=== PATIENT | female | born 1955 | race Caucasian/White ===

== ENCOUNTER 2022-10-20 07:44 | Observation (INO) ==
--- NOTE | 2022-08-09 10:14 | PAT Medication Instructions ---
Medication Instructions Date of Service August 09, 2022 Home Medications Medication Instructions Recorded amoxicillin 500 mg tablet 2,000 mg PO ONCE PRN prophylaxis 05/11/22 #4 tabs omeprazole 20 mg tablet,delayed release 20 mg PO Q2D ibandronate 150 mg PO MONTHLY amoxicillin 500 mg tablet 2,000 mg PO ONCE PRN prophylaxis Continue as directed omeprazole 20 mg tablet,delayed release 20 mg PO Q2D ibandronate 150 mg PO MONTHLY amoxicillin 500 mg tablet 2,000 mg PO ONCE PRN prophylaxis (prior to dental procedures) Other Notes If you have any questions please call us at [phone] or [phone] or [phone] or [phone]
--- NOTE | 2022-08-16 13:11 | Anesthesiology Consultation ---
Date of Service August 16, 2022 Assessment & Plan (1) Encounter for pre-operative examination: - Pt had requested instructions on anticoagulation and requests a different size for compression stockings, she was advised to further discuss these with the surgeon's office. She verbalized understanding and denied additional questions or concerns. Linda with surgeon's office aware and confirmed they are addressing both of these aspects for the pt. - Outpatient joint assessment: Patient is currently scheduled for inpatient pathway. If re-evaluated pending system levels during current pandemic/surgeon requests outpatient pathway, patient is not acceptable candidate for outpatient joint program from anesthesia standpoint. Chart Review Chart Review: Patient seen in Pre Admission Testing Teaching & Discussion Pre-Anesthesia Teaching/Discussion Notes: Instructed NPO after midnight before surgery, except medications with 15 cc of water. Medication instructions provided according to the PAT guidelines. History Surgery Operation Date: 09/08/22 09:20 Proposed Procedures p Left Total Knee Arthroplasty - Juan Lehman DO Height/Weight Height: 5 ft Weight: 88.451 kg Allergies Allergy/AdvReac Type Severity Reaction Status Date / Time No Known Allergies Allergy Verified 08/08/22 11:19 Medications Home Medications Medication Instructions Recorded Confirmed Last Taken omeprazole 20 mg tablet,delayed 20 mg PO Q2D 05/04/21 08/08/22 11/11/21 05:30 release ibandronate 150 mg PO MONTHLY 10/18/21 08/08/22 10/11/21 amoxicillin 500 mg tablet 2,000 mg PO ONCE PRN prophylaxis 05/11/22 08/08/22 Unknown #4 tabs Past Medical History Medical History (Updated 08/16/22 @ 13:18 by Geno Argueta PA-C) Anxiety Chronic venous insufficiency follows with [place] [facility] Depression DVT (deep venous thrombosis) RLE- iliac and lower leg (s/p R TKA 11/2021), given Eliquis for 6 weeks- followed with [facility] and per 07/11/22 note: "Venous reflux study shows no DVT" GERD (gastroesophageal reflux disease) controlled, stable per pt Hearing deficit bilateral hearing aids History of hepatitis C treated Obesity Osteoporosis Urge incontinence Patient denies h/o stroke, seizures, heart attack, heart failure, DM, HTN, or blood transfusions. Exercise / Class Metabolic Activity II 4-5 Yardwork/Stairs/Walk up hill (denies CP or SOB with 1 FOS) Past Family History Family History Father Hypertension Kidney stones Lung cancer Deep vein thrombosis pt notes heavy tobacco use, lung CA Mother Bladder cancer Other No family history of adverse response to anesthesia Past Surgical History Surgical History (Updated 08/16/22 @ 13:08 by Geno Argueta PA-C) History of arthroscopy of right knee History of benign breast biopsy History of bilateral cataract extraction History of section History of colonoscopy History of cone biopsy of cervix History of esophagogastroduodenoscopy (EGD) History of strabismus surgery x5 History of wisdom tooth extraction Status post right knee replacement Right TKA (11/11/21): SAB at L4-5 (x1 attempt) + PNB at [facility]. No issues noted per post-op anesthesia progress note. developed post-op significant RLE DVT, 6 weeks anticoagulation, follows with [place] [facility]. Past Anesthesia History No Hx of Anesthesia Complications and No Family Hx of Anesthesia Complications History of PONV No Hx of PONV and No Hx of Motion Sickness Social History Smoking Status: Former smoker tobacco type: cigarettes Do You Dip or Chew Tobacco: No Smoking End Date: 23 yr ago Hx Alcohol Use: Yes Alcohol type: wine alcohol intake frequency: 0-2 drinks per day Hx Substance Use: No substance use type: marijuana Substance Use Type Other:: rarely-advised Last Used Substance Other:: "SOCIALLY" LAST USED > unknown per pt, ADVISED Review of Systems Snoring, denies witnessed apneas. Patient denies chest pain, shortness of breath, dyspnea on exertion, fever, chills, cough, wheezing, or palpitations. Physical Exam Vital Signs Vitals BP 130/81 P 70 TEMP 98 SP02 97% on RA RESP 18 Physical Full cervical extension range of motion without pain TMD 3.5 finger breadths Mallampati Score 3, small oral opening, macroglossia Dentition: intact, several caps/crowns; denies chipped teeth, implants or bridges Lungs: normal respiratory effort. Clear throughout to auscultation, no adventitious breath sounds Cardiac: regular rate and rhythm, no murmurs noted Carotid arteries: negative bruit bilat Lab Results Anesthesia Preop Results Results Anesthesia Widget: WBC 6.26 K/ul (4.8-10.8) 08/16/22 Hgb 13.5 g/dl (12.0-16.0) 08/16/22 Hct 40.5 % (34.1-44.9) 08/16/22 Plt 294 K/uL (130-400) 08/16/22 Na 142 mmol/L (136-145) 08/16/22 K 4.1 mmol/L (3.5-5.1) 08/16/22 Cl 107 mmol/L (98-107) 08/16/22 CO2 28 mmol/L (21-32) 08/16/22 BUN 16 mg/dl (6-23) 08/16/22 Creat 0.82 mg/dl (0.6-1.2) 08/16/22 Glucose Level 106 mg/dl (70-99(Fasting)) H 08/16/22 PT 10.4 Seconds (9.0-12.0) 08/16/22 PTT 25.2 Seconds (21.0-31.0) 08/16/22 INR 1.0 (0.9-1.1) 08/16/22 Blood Type AB Positive 08/16/22 Antibody Screen NEGATIVE 08/16/22 Testing Electrocardiogram Date: 11/18/21 *Poor data quality NSR, rate 70 bpm Chest X-Ray Date: 10/18/21 The cardiomediastinal and hilar silhouettes are within normal limits. No pneumothorax, pleural effusion, airspace consolidation or overt pulmonary edema. Degenerative changes of the shoulders and spine. Age-indeterminate T9 and T11 compression deformities without retropulsion is likely chronic. IMPRESSION: No acute process. Echocardiogram Date: 02/28/22 EF 55-60% No regional wall motion abnormalities No significant valvular pathology Mildly dilated LA Borderline RA enlargement Grade I diastolic dysfunction Other Testing Venous reflux LE bilat 03/13/22 No evidence of DVT in BLE, within visualized vessels COVID-19 Risk Screen Screening Information COVID-19 Screen Date: 08/16/22 Exposure 21 Days Family/Household +COVID Last 21 Days: No Exposure 10 Days Any COVID Exposure Last 10 Days: No Symptoms Last 10 Days Experienced COVID Sx Last 10 Days: No + COVID 0-90 Days COVID + in Last 0-90 Days: No
--- NOTE | 2022-10-19 07:58 | History & Physical Report ---
Date of Service October 19, 2022 Assessment & Plan (1) Osteoarthritis of left knee: We will proceed with a left total knee arthroplasty. Postoperatively she will be started on Eliquis for DVT prophylaxis and kept overnight in the hospital for postop medical management. She plans to use energy physical therapy upon discharge. History of Present Illness Chief Complaint: Osteoarthritis of the left knee. Primary Care Provider: Kusum Cid DO Lori is a pleasant 67-year-old female who has been dealing with chronic increasing left knee pain. X-rays and clinical examination been diagnostic for osteoarthritis of the left knee. She underwent a right knee replacement a year ago and is done very well with that. She did have a DVT postoperatively that was treated with Eliquis. After found conservative treatment with her left knee, she has elected proceed with a left total knee arthroplasty.. Allergies Allergy/AdvReac Type Severity Reaction Status Date / Time No Known Allergies Allergy Verified 08/08/22 11:19 Home Medications Medication Instructions Recorded Confirmed Type omeprazole 20 mg tablet,delayed 20 mg PO Q2D 05/04/21 10/17/22 History release ibandronate 150 mg PO MONTHLY 10/18/21 10/17/22 History amoxicillin 500 mg tablet 2,000 mg PO ONCE PRN prophylaxis 05/11/22 10/17/22 Rx #4 tabs Past Med/Surg History Medical History Anxiety Chronic venous insufficiency follows with [place] [facility] Depression DVT (deep venous thrombosis) RLE- iliac and lower leg (s/p R TKA 11/2021), given Eliquis for 6 weeks- followed with [facility] and per 07/11/22 note: "Venous reflux study shows no DVT" GERD (gastroesophageal reflux disease) controlled, stable per pt Hearing deficit bilateral hearing aids History of hepatitis C treated Obesity Osteoporosis Urge incontinence Surgical History History of arthroscopy of right knee History of benign breast biopsy History of bilateral cataract extraction History of section History of colonoscopy History of cone biopsy of cervix History of esophagogastroduodenoscopy (EGD) History of strabismus surgery x5 History of wisdom tooth extraction Status post right knee replacement Right TKA (11/11/21): SAB at L4-5 (x1 attempt) + PNB at [facility]. No issues noted per post-op anesthesia progress note. developed post-op significant RLE DVT, 6 weeks anticoagulation, follows with [facility]. Family History Father Hypertension Kidney stones Lung cancer Deep vein thrombosis pt notes heavy tobacco use, lung CA Mother Bladder cancer Other No family history of adverse response to anesthesia Social History Smoking Status: Former smoker Smoking End Date: 23 years ago; Second Hand Exposure: No; Do You Dip or Chew Tobacco: No; Tobacco Cessation Education Requested by Patient: No Hx Alcohol Use: Yes Alcohol type: wine Hx Substance Use: Yes Last Used Substance Other:: rarely Substance Use Type Other:: rarely-advised Preferred Language: Finnish Communication Ability: Effective Oracle Ebs Consultant Required: No Beliefs That Will Affect Care: None Current Living Situation: Spouse current occupational status: retired Other Information That Helps Us Care for You: No Feels Safe at Home: Yes Safety Concerns: Feels Safe At This Time Assistive Devices: Glasses and Hearing Aid - Bilateral Review of Systems All systems reviewed & are unremarkable except as noted in HPI & below. Physical Exam On physical examination of left knee, she has good motion of 0 to 120 degrees. No instability. Pain of the distal medial femoral condyle and over the joint line.. Constitutional WD/WN, vitals as above Eyes PERRL, conjunctivae normal, anicteric sclerae ENMT external ear and nose normal, oropharynx normal Neck trachea midline, no thyromegaly Respiratory normal respiratory effort, lungs clear to auscultation Cardiovascular RRR, no murmur, no edema Gastrointestinal (Abdomen) normal bowel sounds, soft, nontender, no hepatosplenomegaly Skin no rashes, warm and dry Psychiatric A+Ox3, euthymic affect Results & Data Results & Data Laboratory Results . Diagnostic Findings X-rays of the left knee show some osteoarthritis with some joint space narrowing and osteophyte formation.. PG Care Time/CCT Total # of Minutes Spent Total Time Spent with Patient: Total time spent is greater than 50% in coordination of care (as documented) at patient's floor/unit and/or counseling patient: Coding Level of Care Code None Diagnoses Osteoarthritis of left knee M17.12
[~2022-10-20 07:44] MED LIST: ACETAMINOPHEN 500 MG TAB PO SCH; BUPIVACAINE 0.5 % 5 MG/1 ML PF 10ML VIAL ONE; FAMOTIDINE 20 MG TAB PO SCH; GABAPENTIN 300 MG CAP PO SCH; LR 500ML BOLUS, THEN 15ML/HR IV SCH; LR 60ML/HR IV SCH; ORTHO JOINT MIX INFIL SCH; ROPIVACAINE 0.5% 5 MG/ML 30 ML VIAL ONE; TRANEXAMIC ACID 1,000 MG **IV Intra-op IV SCH; TRANEXAMIC ACID 1,000 MG **IV Pre-op IV SCH; ceFAZolin 2000MG 2,000 MG/15 ML SYR IV SCH; dexAMETHasone 4 MG TAB PO SCH
[2022-10-20 08:27] LABS: Basophils # (auto) 0.03 K/uL (0-0.2); Basophils % (auto) 0.7 %; Eosinophils # (auto) 0.09 K/uL (0-0.50); Hematocrit (blood only) 40.5 % (37.0-47.0); Hemoglobin 13.7 g/dl (12.0-16.0); Immature Granulocytes # (auto) 0.02 K/uL (0.01-0.20); Immature Granulocytes % (auto) 0.4 %; Lymphocytes # (auto) 2.11 K/uL (1.2-3.4); Lymphocytes % (auto) 47.4 %; Mean Corpuscular Hemoglobin 29.6 pg (25.0-34.0); Mean Corpuscular Hgb Conc 33.8 g/dL (32.0-36.0); Mean Corpuscular Volume 87.5 fL (80.0-100.0); Mean Platelet Volume 8.9 fL (9.4-12.4); Monocytes # (auto) 0.48 K/uL (0.11-0.59); Monocytes % (auto) 10.8 %; Neutrophils # (auto) 1.72 K/uL (1.40-6.50); Neutrophils % (auto) 38.7 %; Nucleated RBC # (auto) 0.02 K/uL (0-0.12); Nucleated RBC % (auto) 0.4 %; Platelet Count 261 K/uL (130-400); RDW Coefficient of Variation 12.1 % (11.5-14.5); RDW Standard Deviation 38.8 fL (36.4-46.3); Red Blood Count 4.63 M/uL (4.20-5.40); White Blood Count 4.45 K/ul (4.8-10.8)
[2022-10-20 08:43] LABS: Partial Thromboplastin Ratio 0.9; Partial Thromboplastin Time 25.7 Seconds (21.0-31.0); Prothrombin Time 10.7 Seconds (9.0-12.0)
[2022-10-20] MEDS ORDERED: fentaNYL citrate PF 100 MCG/2 ML VIAL ONE (08:49)
[2022-10-20] MEDS ORDERED: MIDAZOLAM HCL 1 MG/ML 2ML VIAL ONE (08:49)
[2022-10-20] MEDS ORDERED: PROPOFOL IV EMULSION 10 MG/ML 20 ML VIAL IV ONE ×2 (08:50)
[2022-10-20] MEDS ORDERED: LIDOCAINE 2% MPF LOCAL 5 ML VIAL INFIL ONE (08:50)
[2022-10-20 08:56] LABS: Potassium 3.9 mmol/L (3.5-5.1)
[2022-10-20 09:02] LABS: BUN Creatinine Ratio 21.1 (10-20); Creatinine Clr Calc Pharmacy 59.1 ml/min; Est GFR (African American) 75.6 ml/min; Est GFR (Non-African American) 65.2 ml/min
[2022-10-20] MEDS ORDERED: HYDROmorphone INJ 2 MG/ML SYR/VIAL IV PRN (09:28)
[2022-10-20] MEDS ORDERED: ATROPINE SULFATE 0.1 MG/ML 10ML SYR IV PRN (09:28)
[2022-10-20] MEDS ORDERED: fentaNYL citrate PF 100 MCG/2 ML VIAL IV PRN (09:28)
[2022-10-20] MEDS ORDERED: ONDANSETRON INJ 2 MG/ML 2 ML VIAL IV PRN ×2 (09:28→15:08)
[2022-10-20] MEDS ORDERED: ePHEDrine sulfate 50 MG/ML AMP IV PRN (09:28)
--- NOTE | 2022-10-20 09:29 | History & Physical Bridge Note ---
Date of Service October 20, 2022 History & Physical Bridge Note I have examined the patient, reviewed the History & Physical and in the interval since the performance of the History & Physical I have noted the following changes of clinical significance: no changes noted
[2022-10-20] MEDS ORDERED: ORTHO JOINT ANESTHETIC ONE (10:01)
[2022-10-20] MEDS ORDERED: ONDANSETRON INJ 2 MG/ML 2 ML VIAL ONE (10:05)
[2022-10-20] MEDS ORDERED: PHENYLEPHRINE HCL 10 MG/ML VIAL ONE (10:59)
--- NOTE | 2022-10-20 11:35 | Operative Report ---
PG Post Operative Report Pre & Post Diagnosis Operation Date: 10/20/22 10:30 Pre-Op Diagnosis: Left Knee Degenerative Joint Disease Post-Op Diagnosis: Left Knee Degenerative Joint Disease I identified the patient and participated in the time-out.: Yes Procedure Operation Date: 10/20/22 10:30 Actual Procedures p Left Total Knee Arthroplasty(Left) - Juan Lehman DO Surgeon Juan Lehman DO Server Software Engineer Juan Gabriel PA-C Estimated Blood Loss 30 Findings Consistent with Post-Op Diagnosis Specimens Left femoral and tibial bone Description of Procedure Implants used: I used a Sofia Persona total knee arthroplasty system with a size 5 narrow femur, C tibia, 28 oval patella, and a size 10 medial congruent polyethylene bearing. All components were cemented in place with Biomet cement. Lori arrived [facility] for the above procedure. She was seen in the preoperative holding area and the operative extremity was identified and signed. She was given a preoperative antibiotic, TXA, a spinal anesthetic and an adductor nerve block. She was taken back to the operating room and laid on the table in supine position. She was given basic sedation. The operative knee was then prepped and draped in sterile fashion. A timeout was done, and the patient and the operative extremity was properly identified. A midline incision was made directly over the patella. Dissection was taken down to the extensor mechanism. A midvastus arthrotomy was used. The medial retinaculum was released and the fat pad was mostly excised. The knee was flexed and the ACL, PCL, and meniscus were removed. A drill was sent down the center of the femoral canal followed by an intramedullary silvana. Off that silvana a distal femoral cutting block was placed. 9 mm was resected off the distal femur at 5 of valgus. A posterior referencing AP sizing guide was then placed on the distal femur. The femur measured to be a size 5. 2 drill holes were placed in 3 of external rotation. A 4-in-1 cutting block was then impacted into place. Anterior, posterior, and chamfer cuts were then made. The proximal tibia was then exposed. An external tibial alignment guide was placed. A tibial cut guide was then anchored in place and the proximal tibia was then resected. The posterior aspect of the knee was then opened up and any additional meniscus fragments and osteophytes were removed. The tibia measured to be a size C. The tibial plate was then placed in the appropriate rotation and the tibia was drilled and punched. Trial components were then placed. I used a size 10 medial congruent polyethylene insert. The knee was brought through a full range of motion and felt to be stable. The peg holes for the femoral component were then drilled. The patella was then everted and 9 mm was resected off the posterior aspect of the patella. The patella measured to be a size 28 oval. 3 peg holes were then drilled. A trial patella was placed. The knee was once again brought through a full range of motion and felt to be stable. Trial components were then removed. The surrounding soft tissues were injected with 100 cc of an orthopedic pain control cocktail. All components were then cemented into place with Biomet cement. The final polyethylene insert was then snapped into place. Once cement was dry the tourniquet was deflated. Hemostasis was obtained. A dilute betadyne lavage was then done for 3 minutes. The joint was then irrigated with normal saline solution. The midvastus arthrotomy was then closed with #1 Vicryl suture. The skin was closed with 2-0 Vicryl, 3-0V lock suture, and omkar. A soft compressive dressing was placed. She was then transferred to a hospital bed and taken to the postanesthesia care unit in stable condition. She tolerated the procedure well. Juan Gabriel PA-C, was present for the entire procedure. He was critical for patient positioning, prepping, draping, retraction exposure, wound closure and application of sterile dressing. I attest to the content of the Intraoperative Record and any orders documented therein. Any exceptions are noted below.
--- NOTE | 2022-10-20 12:14 | XRay Report ---
TWO VIEWS LEFT KNEE CLINICAL HISTORY: Postoperative examination. FINDINGS: AP and crosstable lateral portable views of the left knee are obtained. A left knee arthrop lasty is in near anatomic alignment. There has been undersurface remodeling of the patella. No acute fracture is seen. There are expected postoperative changes around the knee including skin clips, soft tissue edema, and subcutaneous gas. IMPRESSION: Expected postoperative changes status post left knee arthroplasty. No acute fracture is s een. ACT 112: Negative or not required by law. Electronically signed by: Karan Dinero M.D. 10/20/2022 12:13 PM
--- NOTE | 2022-10-20 14:35 | Anesthesiology Progress Note ---
Date of Service October 20, 2022 Anesthesia Post Procedure Vital Signs Vital Signs: Temp Pulse Pulse Resp BP Pulse Ox O2 Del Method 10/20/22 14:25 64 19 124/66 98 Nasal Cannula 10/20/22 14:15 61 14 136/76 95 Nasal Cannula 10/20/22 14:05 60 13 123/76 98 Nasal Cannula 10/20/22 13:55 62 12 137/81 96 Nasal Cannula 10/20/22 13:45 65 16 132/76 98 Nasal Cannula 10/20/22 13:35 66 14 130/80 98 Nasal Cannula 10/20/22 13:25 65 18 144/72 H 99 Nasal Cannula 10/20/22 13:15 60 13 130/75 97 Nasal Cannula 10/20/22 13:05 67 17 135/71 98 Nasal Cannula 10/20/22 12:55 64 16 127/71 98 Nasal Cannula 10/20/22 12:45 63 14 131/71 98 Nasal Cannula 10/20/22 12:35 62 15 138/74 98 Nasal Cannula 10/20/22 12:25 65 14 134/72 95 Nasal Cannula 10/20/22 12:15 68 13 148/77 H 96 Oxymask 10/20/22 12:05 69 17 138/71 100 Oxymask 10/20/22 11:58 36.7 C 77 16 124/74 96 Oxymask 10/20/22 08:25 36.7 C 73 20 170/94 H 97 Room Air O2 Flow Rate 10/20/22 14:25 2 10/20/22 14:15 2 10/20/22 14:05 2 10/20/22 13:55 2 10/20/22 13:45 2 10/20/22 13:35 2 10/20/22 13:25 2 10/20/22 13:15 2 10/20/22 13:05 2 10/20/22 12:55 2 10/20/22 12:45 2 10/20/22 12:35 2 10/20/22 12:25 2 10/20/22 12:15 3 10/20/22 12:05 7 10/20/22 11:58 7 10/20/22 08:25 Transfer of Care Handoff Completed per policy Notes Mental Status: alert / awake / arousable Patient Amnestic to Procedure: Yes Nausea / Vomiting: adequately controlled Pain: adequately controlled Airway Patency, RR, SpO2: stable & adequate BP & HR: stable & adequate Hydration State: stable & adequate Neuraxial Anesthesia: was administered and sensory block is resolving Anesthetic Complications: no major complications apparent
[2022-10-20] MEDS ORDERED: oxyCODONE HCL IR 5 MG TAB (IMMEDIATE RELEASE) PO PRN (15:08)
[2022-10-20] MEDS ORDERED: METOCLOPRAMIDE HCL INJ 5 MG/ML 2 ML VIAL IV PRN (15:08)
[2022-10-20] MEDS ORDERED: NALOXONE HCL 0.4 MG/1 ML VIAL/CARP IV PRN (15:08)
[2022-10-20] MEDS ORDERED: MAGNESIUM HYDROXIDE SUSP 30 ML UDC PO PRN (15:08)
[2022-10-20] MEDS ORDERED: HYDROmorphone INJ 0.5 MG/0.5 ML SYR IV PRN (15:08)
[2022-10-20] MEDS ORDERED: bisacodyL 10 MG SUPP PR PRN (15:08)
[2022-10-20] MEDS ORDERED: PANTOprazole 40 MG TAB PO SCH (15:30)
[2022-10-20] MEDS: ACETAMINOPHEN 500 MG TAB PO SCH ×2 (15:43→21:53)
[2022-10-20] MEDS: SODIUM CHLORIDE 0.9% 1000ML 1,000 ML IV SCH (15:44)
[2022-10-20] MEDS: KETOROLAC TROMETHAMINE 15 MG/ML VIAL IV SCH ×2 (15:45→21:09)
[2022-10-20] MEDS: ceFAZolin 2000MG 2,000 MG/15 ML SYR IV SCH (18:23)
[2022-10-20] MEDS: DOCUSATE SODIUM 100 MG CAP PO SCH (20:21)
[2022-10-20] MEDS: ACETAMINOPHEN/HYDROcodone ELIX 15 ML/CUP PO PRN (20:47)
[2022-10-20] MEDS ORDERED: ASPIRIN 81 MG ECTAB PO SCH (21:00)
[2022-10-20] MEDS ORDERED: SENNA 8.6 MG TAB PO SCH (21:00)
[2022-10-21] MEDS: ACETAMINOPHEN/HYDROcodone ELIX 15 ML/CUP PO PRN ×2 (00:53→05:05)
[2022-10-21] MEDS: SODIUM CHLORIDE 0.9% 1000ML 1,000 ML IV SCH (01:06)
[2022-10-21] MEDS: ceFAZolin 2000MG 2,000 MG/15 ML SYR IV SCH (02:26)
[2022-10-21] MEDS: KETOROLAC TROMETHAMINE 15 MG/ML VIAL IV SCH ×2 (02:26→08:58)
[2022-10-21] MEDS: ACETAMINOPHEN 500 MG TAB PO SCH (05:58)
[2022-10-21] MEDS ORDERED: dexAMETHasone 4 MG TAB PO SCH (08:00)
[2022-10-21] MEDS: DOCUSATE SODIUM 100 MG CAP PO SCH (08:07)
[2022-10-21] MEDS ORDERED: HYDROCODONE/ACETAMOPHEN 5/325MG TAB PO PRN (08:30)
--- NOTE | 2022-10-21 08:33 | Orthopedic Progress Note ---
Date of Service October 21, 2022 Assessment & Plan (1) Status post left knee replacement: Overall she is doing very well. She is having a little bit more pain in this knee but she is up and ambulating. She is on Eliquis for DVT prophylaxis due to a history of prior DVT. She will be seen by physical therapy today for ambulation and range of motion exercises. She can be discharged home later today. She will follow-up with orthopedics in 2 weeks. Louise Sandoval was seen and examined at bedside this morning. Overall she is doing fairly well. She is having a little bit more soreness in this knee than she had in her other knee. She is up and ambulating. She has no other complaints.. Review of Systems All systems reviewed & are unremarkable except as noted in HPI & below. Physical Exam On physical examination of the left knee, the dressing is clean and dry. She is up and ambulating in her room. She is neurovascular intact.. Results & Data Results & Data Laboratory Results . Diagnostic Findings Postoperative x-rays of the left knee show the prosthesis to be in anatomic alignment without any evidence of fracture, screws, or loosening. PG Care Time/CCT Total # of Minutes Spent Total Time Spent with Patient: Total time spent is greater than 50% in coordination of care (as documented) at patient's floor/unit and/or counseling patient: Coding Level of Care Code 17506 Post Operative Follow-Up Diagnoses Status post left knee replacement Z96.652
--- NOTE | 2022-10-21 08:34 | Discharge Summary ---
Date of Service October 21, 2022 Admission HPI (Per Admitting) Lori is a pleasant 67-year-old female who has been dealing with chronic increasing left knee pain. X-rays and clinical examination been diagnostic for osteoarthritis of the left knee. She underwent a right knee replacement a year ago and is done very well with that. She did have a DVT postoperatively that was treated with Eliquis. After found conservative treatment with her left knee, she has elected proceed with a left total knee arthroplasty.. Admission Exam (Per Admitting) On physical examination of left knee, she has good motion of 0 to 120 degrees. No instability. Pain of the distal medial femoral condyle and over the joint line.. Principal Diagnosis Same as "Discharge Diagnosis" noted below under Discharge Instructions. Discharge Exam On physical examination of the left knee, the dressing is clean and dry. She is up and ambulating in her room. She is neurovascular intact.. Discharge Data Procedures Performed Operation Date: 10/20/22 10:30 Actual Procedures p Left Total Knee Arthroplasty(Left) - Juan Lehman DO Ordered Studies 10/20/22 05:00 US - OR guided needle placemen Routine Hospital Course (1) Status post left knee replacement: On October 20, 2022 Lori arrived at [facility] and underwent a left knee replaced without complication. She had a spinal anesthetic. Postoperatively she was started on Eliquis for DVT prophylaxis and transferred to the general orthopedic floors. Her hospital course was uneventful. On postop day #1, her vital signs were stable and her pain was well controlled. She was able to participate well with physical therapy doing ambulation and range of motion exercises. She was then discharged home. She will follow with orthopedics in 2 weeks. PG Care Time/CCT Total # of Minutes Spent Total Time Spent with Patient: Total time spent is greater than 50% in coordination of care (as documented) at patient's floor/unit and/or counseling patient: Discharge Plan Discharge Items Patient Disposition: Home - Home Health Services Reason For Visit: Left Knee Degenerative Joint Disease Discharge Diagnosis: Status post left knee replacement Activity: Per Instructions section Non-emergency contact: Surgeon Call non-emergency contact if: your wound has increased redness and your wound has increased drainage Follow-up/Referrals: Kusum Cid DO [Primary Care Provider] - Diet: Regular Addtl Attending Provider Instructions: Activity and Therapy Recommendations: * If you are using [facility] then therapy will be provided at your home until they feel you have accomplished all of your goals. * If you are using [facility] then Physical Therapy will be provided until they feel you are ready to start Outpatient Physical Therapy. * If you are not using home therapy then Outpatient Physical Therapy should start about 3-5 days from your day of surgery. Therapy will last about 6-10 weeks * It is important not to put a pillow under your knee when you are relaxing or sleeping. It is just as important to make sure you are getting your knee perfectly straight as it is to regain your knee bend. * You were shown a series of exercises in the hospital. Do these exercises three times each day including the exercises you were shown in physical therapy. * Get up and walk several times each day. For the first four weeks, try not to stand or walk for more than one hour at a time. If you do stand or walk for more than one hour, you will not hurt anything, but your leg will likely swell. * As you feel comfortable, you may change from the walker or crutches to a cane and then to independent walking. Medications: * Narcotic You will likely be sent home from the hospital with a prescription for the narcotic pain medication that worked best throughout your stay. * Take Eliquis twice a day for 6 weeks after surgery. * Other medications may be prescribed for specific circumstances. If you have any questions, please call the office at . * Resume previous home medications unless otherwise instructed TEDs/Elastic Stockings: The white elastic stockings help limit swelling and prevent blood clots from forming in your legs.~ The more you wear them, the more they work. Wear them for six weeks. Dressing Care: The dressing can be changed after physical therapy on postop day #1. Daily dry dressing changes for a few days, especially if the incision is still draining some. If the incision is not draining then you may leave the omkar open to air. If there is a little bit of drainage or if the omkar are getting stuck on your clothing then cover the incision with a dry dressing. The omkar will be removed at your 2 week follow-up appointment. Showering: You may shower 5 days from the day of surgery as long as the incision is no longer draining. You may shower with the omkar exposed. Let soapy water run over the omkar and pat them dry. Do not scrub or soak the incision. Things To Watch For: * Drainage from the incision site that occurs more than one week after your surgery. * Increased redness at the incision site. * Fever above 102 degrees Fahrenheit. * Unusual chest pain or shortness of breath. * Call [facility] at with any of the above problems Follow-Up Visit: Follow-up with Dr. Lehman's PA (Juan Gabriel) 2-3 weeks after your day of surgery. He will remove your omkar and answer any questions. If you have any additional questions or concerns, Dr Lehman is usually in the office at the same time and will be available An appointment was probably scheduled when you signed-up for surgery in the office. If you have any questions call Office Instructions: More detailed instructions as well as Frequently Asked Questions were provided in a folder by our office when you signed-up for surgery. Please review these instructions when you get home. If you have any further questions or concerns, please feel free to call the office at [phone] Pending Studies at Discharge: No Stand-Alone Forms: My [facility] Medications and DC Order Prescriptions: New Eliquis 5 mg Tablet 5 mg PO BID 42 Days Qty: 84 0RF hydrocodone-acetaminophen 5-325 mg tablet 1 tab PO Q6H PRN (Reason: pain) Qty: 40 0RF Continued amoxicillin 500 mg tablet 2,000 mg PO ONCE PRN (Reason: prophylaxis) Qty: 4 2RF Rx Instructions: ONE HOUR PRIOR TO DENTAL PROCEDURE ibandronate 150 mg PO MONTHLY omeprazole 20 mg Tablet,Delayed Release (Dr/Ec) 20 mg PO Q2D Admission Data Admit Date/Time: 10/20/22 12:00 Attending Provider: Juan Lehman Admit Provider: Juan Lehman Primary Care Provider: Kusum Cid
[2022-10-21] MEDS ORDERED: MULTIVITAMIN TAB PO SCH (09:00)
[2022-10-21] MEDS ORDERED: APIXABAN 5 MG TABLET PO SCH (09:00)
== END 2022-10-21 12:40 | disposition home or self-care (01) ==
LOC: 3E 07:44 → ASU 07:44

== ENCOUNTER 2024-03-19 04:53 | Inpatient (IN) ==
--- NOTE | 2024-03-19 05:05 | Emergency Department Note ---
Impression & Plan Elevated troponin, Atypical chest pain, Hypertensive urgency ED Provider Note NAME: ALONZO MONTENEGRO AGE: 68 SEX: F : 1955 ARRIVES VIA: Walk-In INFORMANT: Patient ED PROVIDER(S): Keo Gleason MD CHIEF COMPLAINT: Chest pain, sob, left arm tingling. PLAN: Disposition: Admit MEDICAL DECISION MAKING: The patient is a pleasant 68-year-old woman with a past medical history of reactive airway disease, idiopathic polyneuropathy, GERD who presents to the emergency department via walk-in for evaluation of left-sided chest pain/pressure, shortness of breath and numbness and tingling of left upper extremity that has been ongoing for the past week has been constant. Patient reports that last night the discomfort was more severe than it had been and so presents for evaluation. Patient has had extensive testing in the past for symptoms of shortness of breath where most recently she had an echocardiogram on 02/27 that was unremarkable and a nuclear stress test in June 2023 that was negative. Patient also had pulmonary function testing performed in February 09 of this year. Otherwise, the patient denies any recent illness including denies fevers, chills, cough, congestion, GI symptoms. She denies any recent pattern of exertional chest pain. She reports her current symptoms are constant even at rest. The patient denies any recent change in medications or diet. On evaluation the patient is uncomfortable but no distress, afebrile with blood pressure in the 200s/70s and vital signs otherwise stable. She has reproducible anterior chest wall and left AC joint discomfort without discrete tenderness. She has normal strength and sensation in all extremities. Pulses are equal in all extremities. EKG without overt acute ischemia. CXR negative for acute cardiopulmonary process per my personal preliminary review/interpretation. WBC, H/H and platelets within normal limits. Chemistry without metabolic acidosis. Electrolytes unremarkable AST is mildly above normal, nonspecific and LFTs otherwise unremarkable. Initial high stable troponin was elevated at 101, nonspecific without prior similar elevations. Lipase is normal. CTA of the chest with dissection protocol was performed and was negative for PE or acute aortic pathology. Previously identified right lower lobe nodule is unchanged since November of this year. Given the patient's unremarkable EKG and recent echocardiogram suspect ACS is less likely. Out of caution patient was given full dose aspirin and sublingual nitroglycerin. However, suspect symptoms and elevated troponin are likely related to uncontrolled hypertension. The patient agrees with plan for admission for further management. Of note, following administration of nitroglycerin the patient's blood pressure did significantly improve to the 130s/80s and she reported complete resolution of her shortness of breath and chest symptoms. Case was discussed with Dr. Mott [facility] hospitalist, who will evaluate the patient for admission. Triage Nursing notes reviewed and agree them. Prior/external medical records reviewed Vital Signs: reviewed Differential diagnosis: Cardiac ischemia, aortic dissection, pulmonary embolism, pneumothorax, pneumonia, pericarditis, myocarditis, esophageal rupture, GERD, cholecystitis, pancreatitis, musculoskeletal, as well as other pathologies. ER treatment provided: See below. Diagnostics interpreted by me: ECG: Normal sinus rhythm, 63 bpm, no ectopy, no overt ST elevation or depression, QTc 407, QRS 74. Cardiac Monitoring: An order for continuous cardiac monitoring was placed and demonstrated Normal sinus rhythm, 63 bpm, no ectopy. Laboratory studies: See below Imaging studies: See below Consultation(s): JAYLYN Comer hospitalist. HPI: The patient is a pleasant 68-year-old woman with a past medical history of reactive airway disease, idiopathic polyneuropathy, GERD who presents to the emergency department via walk-in for evaluation of left-sided chest pain/pressure, shortness of breath and numbness and tingling of left upper extremity that has been ongoing for the past week has been constant. Patient reports that last night the discomfort was more severe than it had been and so presents for evaluation. Patient has had extensive testing in the past for symptoms of shortness of breath where most recently she had an echocardiogram on 02/27 that was unremarkable and a nuclear stress test in June 2023 that was negative. Patient also had pulmonary function testing performed in February 09 of this year. Otherwise, the patient denies any recent illness including denies fevers, chills, cough, congestion, GI symptoms. She denies any recent pattern of exertional chest pain. She reports her current symptoms are constant even at rest. The patient denies any recent change in medications or diet. ROS: See above HPI for pertinent positives & negatives. A total of 10 systems reviewed and were otherwise negative. VITALS:See Below PHYSICAL EXAMINATION: GENERAL: Awake, alert, in no distress HENT: Normocephalic, atraumatic. Oropharynx with dry mucous membranes and otherwise unremarkable. EYES: Normal conjunctiva. Sclera non-icteric. NECK: Supple. No nuchal rigidity. FROM. No JVD. RESPIRATORY: Clear to auscultation. CARDIAC: Regular rate, normal rhythm. Extremities warm and well perfused. Pulses equal. ABDOMEN: Soft, non-distended. No tenderness to palpation. No rebound or guarding. No masses. MUSCULOSKELETAL: Chest examination reveals no tenderness. The back is symmetrical on inspection without obvious abnormality. There is no CVA tenderness to palpation. No joint edema. LOWER EXTREMITIES: Calves are equal size bilaterally and non-tender. No edema. No discoloration. NEURO: No sensory or motor deficits noted. 5/5 strength and SILT x 4 extremities. SKIN: No rash or jaundice noted. Keo Gleason MD Past Med/Surg History Problem List Hypertensive urgency (Acute) Atypical chest pain (Acute) Elevated troponin (Acute) Pulmonary nodule Reactive airway disease Morbid obesity due to excess calories Dyspnea Idiopathic polyneuropathy Status post left knee replacement (~10/2022) Encounter for pre-operative examination GERD (gastroesophageal reflux disease) controlled, stable per pt Colon cancer screening Urge incontinence Postural (urinary) incontinence Status post right knee replacement Right TKA (11/11/21): SAB at L4-5 (x1 attempt) + PNB at [facility]. No issues noted per post-op anesthesia progress note. developed post-op significant RLE DVT, 6 weeks anticoagulation, follows with [facility]. DVT (deep venous thrombosis) RLE- iliac and lower leg (s/p R TKA 11/2021), given Eliquis for 6 weeks- followed with [facility] and per 07/11/22 note: "Venous reflux study shows no DVT" Medical History Depression Obesity Chronic venous insufficiency follows with [facility] History of hepatitis C treated Osteoporosis Hearing deficit bilateral hearing aids Anxiety Surgical History History of esophagogastroduodenoscopy (EGD) History of benign breast biopsy History of arthroscopy of right knee History of cone biopsy of cervix History of section History of colonoscopy History of wisdom tooth extraction History of bilateral cataract extraction History of strabismus surgery x5 Family History Father Hypertension Kidney stones Lung cancer Deep vein thrombosis pt notes heavy tobacco use, lung CA Mother Bladder cancer Other No family history of adverse response to anesthesia Social History Smoking Status: Former smoker Tobacco Type: Cigarettes Age Started Using Tobacco: 14; Age Quit Using Tobacco: 48; packs per day: 1; Second Hand Exposure: No; Do You Dip or Chew Tobacco: No; Hx Alcohol Use: Yes Alcohol type: wine Hx Substance Use: Yes Last Used Substance Other:: rarely Substance Use Type Other:: rarely-advised Preferred Language: Ivorian Communication Ability: Effective Inclusion Internship Required: No Beliefs That Will Affect Care: None Current Living Situation: Spouse current occupational status: retired Feels Safe at Home: Yes Assistive Devices: Walker Allergies Allergies Allergy/AdvReac Type Severity Reaction Status Date / Time No Known Allergies Allergy Verified 01/23/24 09:50 Home Meds Home Medications Medication Instructions Recorded Confirmed ibandronate 150 mg PO MONTHLY 10/18/21 01/23/24 calcium carbonate 600 mg-vitamin cap PO DAILY 05/15/23 01/23/24 D3 12.5 mcg (500 unit) capsule (Calcium 600 with Vitamin D3) ealjhanm-cau-nfmlc ac 400 tab PO DAILY 05/15/23 01/23/24 mcg-calcium carb 500 mg-vit K1 20 mcg tablet (Women's 50 Plus Multivitamin) potassium gluconate 500 mg (83 mg) 500 mg PO DAILY 05/15/23 01/23/24 tablet tolterodine 4 mg capsule,extended 4 mg PO DAILY 05/15/23 01/23/24 release 24 hr omeprazole 20 mg tablet,delayed 20 mg PO DAILY 12/20/23 01/23/24 release Previous Rx's Medication Instructions Recorded amoxicillin 500 mg tablet 2,000 mg (4 x 500 mg) PO ONCE PRN 05/11/22 prophylaxis #4 tabs budesonide-formoterol HFA 160 2 puff inhalation .q8hr PRN 02/04/24 mcg-4.5 mcg/actuation aerosol dyspnea #10.2 grams inhaler Results & Data (ED) Vital Signs Vital Signs - 24 hr 03/19/24 04:57 03/19/24 05:01 03/19/24 05:01 Temperature 36.5 C Temperature Source Temporal Artery Scan Pulse Rate 71 Pulse Rate [Apical] Pulse Rhythm [Apical] Pulse Strength [Apical] Respiratory Rate 20 Respiratory Effort / Characteristics Non-Labored Spontaneous Respiratory Depth Normal Respiratory Pattern Blood Pressure 204/74 H Blood Pressure [Right Arm] Blood Pressure Mean 117 Blood Pressure Mean [Right Arm] Blood Pressure Position [Right Arm] Pulse Oximetry 97 96 Oxygen Delivery Method Room Air Room Air Room Air Oxygen Flow Rate Fraction of Inspired Oxygen 96 Sepsis Recent Fever Within 48 Hours No Sepsis New/Unexplained Change in Mental Status N/A Sepsis Action Taken by Nursing No Action Required 03/19/24 05:10 03/19/24 06:30 03/19/24 07:08 Temperature Temperature Source Pulse Rate 64 Pulse Rate [Apical] 68 74 Pulse Rhythm [Apical] Regular Pulse Strength [Apical] Normal Respiratory Rate 18 19 Respiratory Effort / Characteristics Non-Labored Non-Labored Spontaneous Respiratory Depth Normal Normal Respiratory Pattern Regular Blood Pressure Blood Pressure [Right Arm] 195/101 H 199/105 H Blood Pressure Mean Blood Pressure Mean [Right Arm] 132 136 Blood Pressure Position [Right Arm] Semi-fowlers Pulse Oximetry 95 98 Oxygen Delivery Method Room Air Nasal Cannula Oxygen Flow Rate Fraction of Inspired Oxygen Sepsis Recent Fever Within 48 Hours Sepsis New/Unexplained Change in Mental Status Sepsis Action Taken by Nursing 03/19/24 07:25 Temperature Temperature Source Pulse Rate Pulse Rate [Apical] 68 Pulse Rhythm [Apical] Pulse Strength [Apical] Respiratory Rate 16 Respiratory Effort / Characteristics Respiratory Depth Respiratory Pattern Blood Pressure Blood Pressure [Right Arm] 134/85 Blood Pressure Mean Blood Pressure Mean [Right Arm] 101 Blood Pressure Position [Right Arm] Semi-fowlers Pulse Oximetry 97 Oxygen Delivery Method Nasal Cannula Oxygen Flow Rate 2 Fraction of Inspired Oxygen Sepsis Recent Fever Within 48 Hours Sepsis New/Unexplained Change in Mental Status Sepsis Action Taken by Nursing Laboratory Data Attestation: I reviewed the patient's lab results. 03/19/24 05:20 03/19/24 05:20 Lab Results 03/19/24 03/19/24 Range/Units 05:20 05:27 WBC 6.32 (4.8-10.8) K/ul RBC 4.62 (4.20-5.40) M/uL Hgb 13.4 (12.0-16.0) g/dl POC Hgb 13.3 (12.0-16.0) g/dl Hct 39.8 (37.0-47.0) % POC Hct 39 (37-47) % MCV 86.1 (80.0-100.0) fL MCH 29.0 (25.0-34.0) pg MCHC 33.7 (32.0-36.0) g/dL RDW Std Deviation 38.9 (36.4-46.3) fL RDW Coeff of Bri 12.3 (11.5-14.5) % Plt Count 251 (130-400) K/uL MPV 9.3 L (9.4-12.4) fL Immature Gran % (Auto) 0.2 % Neut % (Auto) 43.5 % Lymph % (Auto) 43.2 % Russell % (Auto) 10.6 % Eos % (Auto) 1.7 % Baso % (Auto) 0.8 % Neut # (Auto) 2.75 (1.40-6.50) K/uL Lymph # (Auto) 2.73 (1.20-3.40) K/uL Russell # (Auto) 0.67 H (0.11-0.59) K/uL Eos # (Auto) 0.11 (0.00-0.50) K/uL Baso # (Auto) 0.05 (0.00-0.20) K/uL Immature Gran # (Auto) 0.01 (0.01-0.20) K/uL PT 10.6 (9.0-12.0) Seconds INR 1.0 (0.9-1.1) POC Sodium 138 (135-144) mmol/L Sodium 136 (136-145) mmol/L POC Potassium 4.0 (3.3-5.0) mmol/L Potassium 3.9 (3.5-5.1) mmol/L POC Chloride 105 (101-112) mmol/L Chloride 105 (98-107) mmol/L Carbon Dioxide 23 (21-32) mmol/L POC Total CO2 21 L (24-31) mmol/L Anion Gap 8 (3-11) POC Anion Gap 17.0 (16-25) mmol/L POC BUN 18 (7-18) mg/dl BUN 18 (6-23) mg/dl Creatinine 0.70 (0.6-1.2) mg/dl POC Creatinine 0.9 (0.6-1.3) mg/dl Est Cr Clr Drug Dosing 77.6 ml/min Est GFR ( Amer) 101.7 ml/min Est GFR (Non-Af Amer) 87.8 ml/min BUN/Creatinine Ratio 25.7 H (10-20) Glucose 117 H (70-99(Fasting)) mg/dl POC Glucose (other) 119 H (70-99) mg/dl Calcium 9.6 (8.6-10.3) mg/dl POC Ioniz Calcium Joshua 1.19 (1.12-1.32) mmol/l Magnesium 1.9 (1.7-2.4) mg/dl Total Bilirubin 0.3 (0.2-1.0) mg/dl AST 40 H (13-39) U/L ALT 41 (7-52) U/L Alkaline Phosphatase 55 (34-104) U/L Troponin I High Sens 101.9 H* (0-14) pg/ml Total Protein 6.9 (6.0-8.3) gm/dl Albumin 4.1 (3.4-5.0) gm/dl Globulin 2.8 (2.5-4.0) gm/dl Albumin/Globulin Ratio 1.5 (0.9-2) Lipase 37 (11-82) U/L Administered Medications Discontinued Medications Aspirin (Aspirin Chew 324 Mg) 324 mg PO NOW STA Stop: 03/19/24 06:56 Last Admin: 03/19/24 07:06 Dose: 324 mg Documented By: CEF Sodium Chloride (Nss) 500 mls @ 999 mls/hr IV .Q31M ONE Stop: 03/19/24 05:31 Last Infusion: 03/19/24 06:11 Dose: Infused Documented By: Admin: 03/19/24 05:23 Dose: 999 mls/hr Documented By: AZEB Ioversol (Optiray 320 125ml) 125 ml IV ONCE ONE Stop: 03/19/24 05:57 Last Admin: 03/19/24 05:56 Dose: 118 ml Documented By: WALTER Nitroglycerin (Nitroglycerin Sl 0.4 Mg/Tab Tab) 0.4 mg SL NOW STA Stop: 03/19/24 06:57 Last Admin: 03/19/24 07:07 Dose: 0.4 mg Documented By: CEF Imaging Data Radiologist's Impression: Chest CTA 03/19/24 05:01 CT ANGIOGRAPHY OF THE CHEST DISSECTION PROTOCOL CLINICAL HISTORY: chest pain, Left arm numbness, HTN COMPARISON STUDY: Chest CT November 30, 2023. TECHNIQUE: Before and following the IV administration of Optiray, helical axial images of the chest were obtained. Maximal intensity projections and sagittal and coronal reformats were viewed on an independent 3D workstation. IV contrast was administered without complication. Automated exposure control was utilized for the study. A dose lowering technique was utilized adhering to the principles of ALARA. CT DOSE: 1580.81 mGy.cm FINDINGS: Caliber of the thoracic aorta is normal. There is no thoracic aortic dissection. No pulmonary emboli are identified. There is no pericardial effusion. There is mild cardiomegaly. No thoracic lymphadenopathy is present. There is no pneumothorax or pleural effusion. There is moderate emphysema. A 7 mm subpleural right lower lobe nodule on image 133 of [address] of November 30, 2023. There is no consolidation to suggest pneumonia. There are no acute fractures within the bony thorax. Hepatic steatosis is incidentally noted. IMPRESSION: 1. No thoracic aortic dissection. 2. No acute intrathoracic findings. 3. Emphysema. 4. No change in an indeterminate 7 mm right lower lobe pulmonary nodule since chest CT of November 30, 2023. A chest CT in 6 months to ensure continued stability is recommended. ACT 112: Negative or not required by law. Electronically signed by: All Everett M.D. 03/19/2024 6:51 AM Discharge Plan Visit Data Chief Complaint: Chest Pain Stated Complaint: TIGHTNESS IN CHEST, PALPATIONS, L ARM GOING NUMB ED Provider: Keo Glaeson Discharge Problem: Elevated troponin, Atypical chest pain, Hypertensive urgency Forms Stand Alone Forms: My [facility] Prescriptions Prescriptions: No Action amoxicillin 500 mg tablet 2,000 mg PO ONCE PRN (Reason: prophylaxis) Qty: 4 2RF Rx Instructions: ONE HOUR PRIOR TO DENTAL PROCEDURE budesonide-formoterol 160-4.5 mcg/actuation HFA aerosol inhaler 2 puff inhalation .q8hr PRN (Reason: dyspnea) Qty: 10.2 2RF tolterodine 4 mg capsule,extended release 24hr 4 mg PO DAILY potassium gluconate 500 mg (83 mg) tablet 500 mg PO DAILY Women's 50 Plus Multivitamin 400 mcg-500 mg calcium-20 mcg tablet PO DAILY calcium carbonate-vitamin D3 [Calcium 600 with Vitamin D3] 600 mg-12.5 mcg (500 unit) capsule PO DAILY ibandronate 150 mg PO MONTHLY omeprazole 20 mg tablet,delayed release (DR/EC) 20 mg PO DAILY Referrals Referrals: Kusum Cid, [Primary Care Provider] -
[2024-03-19] MEDS: SODIUM CHLORIDE 0.9% 500 ML IV ONE (05:23)
[2024-03-19 05:40] LABS: iSTAT Creatinine 0.9 mg/dl (0.6-1.3); iSTAT Hemoglobin 13.3 g/dl (12.0-16.0); iSTAT Ionized Calcium 1.19 mmol/l (1.12-1.32)
[2024-03-19] MEDS: OPTIRAY 320 125ml IV ONE (05:56)
[2024-03-19 06:08] LABS: Basophils # (auto) 0.05 K/uL (0.00-0.20); Basophils % (auto) 0.8 %; Eosinophils # (auto) 0.11 K/uL (0.00-0.50); Eosinophils % (auto) 1.7 %; Hematocrit (blood only) 39.8 % (37.0-47.0); Hemoglobin 13.4 g/dl (12.0-16.0); Immature Granulocytes # (auto) 0.01 K/uL (0.01-0.20); Immature Granulocytes % (auto) 0.2 %; Lymphocytes # (auto) 2.73 K/uL (1.20-3.40); Lymphocytes % (auto) 43.2 %; Mean Corpuscular Hgb Conc 33.7 g/dL (32.0-36.0); Mean Corpuscular Volume 86.1 fL (80.0-100.0); Mean Platelet Volume 9.3 fL (9.4-12.4); Monocytes # (auto) 0.67 K/uL (0.11-0.59); Monocytes % (auto) 10.6 %; Neutrophils # (auto) 2.75 K/uL (1.40-6.50); Neutrophils % (auto) 43.5 %; Platelet Count 251 K/uL (130-400); RDW Coefficient of Variation 12.3 % (11.5-14.5); RDW Standard Deviation 38.9 fL (36.4-46.3); Red Blood Count 4.62 M/uL (4.20-5.40); White Blood Count 6.32 K/ul (4.8-10.8)
[2024-03-19 06:10] LABS: Albumin Globulin Ratio 1.5 (0.9-2); Albumin Level 4.1 gm/dl (3.4-5.0); BUN Creatinine Ratio 25.7 (10-20); Bilirubin,Total 0.3 mg/dl (0.2-1.0); Calcium 9.6 mg/dl (8.6-10.3); Creatinine Clr Calc Pharmacy 77.6 ml/min; Est GFR (African American) 101.7 ml/min; Est GFR (Non-African American) 87.8 ml/min; Globulin 2.8 gm/dl (2.5-4.0); Magnesium 1.9 mg/dl (1.7-2.4); Potassium 3.9 mmol/L (3.5-5.1); Total Protein 6.9 gm/dl (6.0-8.3)
[2024-03-19 06:22] LABS: Prothrombin Time 10.6 Seconds (9.0-12.0)
[2024-03-19 06:32] LABS: Troponin I High Sensitivity 101.9 pg/ml (0-14)
--- NOTE | 2024-03-19 06:53 | CT Scan Report ---
CT ANGIOGRAPHY OF THE CHEST DISSECTION PROTOCOL CLINICAL HISTORY: chest pain, Left arm numbness, HTN COMPARISON STUDY: Chest CT November 30, 2023. TECHNIQUE: Before and following the IV administration of Optiray, helical axial images of the chest w ere obtained. Maximal intensity projections and sagittal and coronal reformats were viewed on an [facility] 3D workstation. IV contrast was administered without complication. Automated exposure cont rol was utilized for the study. A dose lowering technique was utilized adhering to the principles of ALARA. CT DOSE: 1580.81 mGy.cm FINDINGS: Caliber of the thoracic aorta is normal. There is no thoracic aortic dissection. No pulmon seun emboli are identified. There is no pericardial effusion. There is mild cardiomegaly. No thoracic lymphadenopathy is present. There is no pneumothorax or pleural effusion. There is moderate emphysema . A 7 mm subpleural right lower lobe nodule on image 133 of [address] of November 29 24. There is no consolidation to suggest pneumonia. There are no acute fractures within the bony thor ax. Hepatic steatosis is incidentally noted. IMPRESSION: 1. No thoracic aortic dissection. 2. No acute intrathoracic findings. 3. Emphysema. 4. No change in an indeterminate 7 mm right lower lobe pulmonary nodule since chest CT of November [address] in 6 months to ensure continued stability is recommended. ACT 112: Negative or not required by law. Electronically signed by: All Everett M.D. 03/19/2024 6:51 AM
[2024-03-19] MEDS: ASPIRIN CHEW 324 MG PO STA (07:06)
[2024-03-19] MEDS: NITROGLYCERIN SL 0.4 MG/TAB TAB SL STA ×2 (07:07→23:22)
--- NOTE | 2024-03-19 07:30 | History & Physical Report ---
Date of Service March 19, 2024 Assessment & Plan (1) Hypertensive urgency: (2) Atypical chest pain: (3) Elevated troponin: (4) Pulmonary nodule: (5) Reactive airway disease: Plan 68 y/o woman presented with hypertensive emergency symptomatic of chest pressure radiating to left arm, mildly elevated troponin. Suspect she has developed hypertension based on recent BP records, acutely worsened by anxiety. Resolved after one SL nitroglycerin and remained normotensive throughout today after one dose of lisinopril/HCTZ Hypertensive emergency Atypical chest pain - seems to have been triggered by severe hypertension. Mild elevation of HS-troponin with flat trend and normal EKG. CTA chest negative for PE or dissection or other explanation for chest heaviness TTE 02/28/24 - normal LV, mild conc LVH, mild diastolic dysfunction, no significant valvular disease, normal RA pressure, normal collapsibility of IVC Stress echo 06/20/2023 - negative, normal exercise capacity Underlying CAD is possible with dyspnea as anginal equivalent but seems unlikely given recently normal stress test and echo -follow serial troponin, serial EKG, monitor symptoms - She tends to have upper chest tightness and palpitations frequently, these occur when lying down at night -consider GERD - increase PPI to bid and advised to try elevating the head of her bed at home For hypertension started low dose lisinopril/HCTZ to which she has had good response. Counseled to obtain a home cuff and monitor daily. Consider very mild diastolic heart failure - though volume status normal on recent Echo. Check BNP, trial of low dose diuretic Other issues: Restrictive lung disease, reactive airways disease - continue control inhaler. Not in exacerbation Mild CM and moderate emphysema on CTA. PFTs 02/10/24 normal without significant BD response. Justin last visit 01/29/24 Morbid obesity BMI 38, restrictive lung disease, MARIE - GLP1 agonist would be helpful for her remote smoking history Major depression, LOUISE DVT history Venous insufficiency, edema Emphysema Idiopathic polyneuropathy - trial gabapentin, start low dose. Follows with Dr. Beebe and has had workup and EMG for this. Onset after bilateral TKRs Pulmonary nodule - "No change in an indeterminate 7 mm right lower lobe p ulmonary nodule since chest CT of November 30, 2023. A chest CT in 6 months to ensure continued stability is recommended". -there is already an order for outpatient chest CT in [address] Anderson DVT prophylaxis - anticipate overnight stay, SCDs only for now, start chemoprophylaxis if LOS greater than 1 day History of Present Illness Chief Complaint: Chest Pain Primary Care Provider: Kusum Cid, DO 68 y/o woman with history of restrictive lung disease came to ED with one week of chest heaviness - L chest / L shoulder - which acutely worsened last night. She has also been experiencing palpitations which consist of feeling of her h eartbeat in her neck and fast heartbeat. She has some pain in her left arm which is quite focal in the mid bicep area with no history of injury or overuse in that area. Last night she had a feeling of numbness and tingling in her left arm she is unsure of the distribution but it felt like her entire hand and arm. Intermittently she wakes up with all of her fingertips tingling. she has chroni c dyspnea on exertion which is unchanged and poor exercise tolerance. mobility is impaired by bilateral lower extremity neuropathy of unknown cause. she is able to climb a flight of stairs, this causes dyspnea but no chest pain On arrival to the ED she was severely hypertensive at 204/74, 199/105. She was given a sublingual nitroglycerin and her symptoms essentially resolved, her blood pressure normalized. She continues to have some feeling of chest tightness in her upper central chest almost at the thoracic inlet and a feeling of palpitations with her heartbeat pounding in her neck, currently she is in normal sinus rhythm on the monitor during this symptom. She had no other neurological symptoms associated with the left arm pain and dysesthesia - for example no changes in her vision no difficulty speaking or understanding no headache or lightheadedness no weakness of extremities no numbness of her face and no change in her leg symptoms of chronic painful neuropathy bilaterally below the knee EKG was normal high-sensitivity troponin 100 She has a longstanding history of chest pressure and dyspnea symptoms but this seemed different. these have been evaluated by cardiology and pulmonary. Notably she had a TTE last month on 02/27 and that was unremarkable. She has a long smoking history with some mild emphysematous changes on CT chest but recent PFTs were normal in January with negative bronchodilator response. she had a dobutamine stress echo in June 2023 which was negative for signs of ischemia. she has a history of DVT in the past but chest CTA in November and today was negative for pulmonary emboli. Dr. Askew's note indicates she was under a trial of treatment for possible reactive airways disease with inhaler and that she has some restrictive lung disease related to obesity hypoventilation and MARIE. regarding her blood pressure she has been normotensive historically but has been severely elevated on several occasions in the past including the current episode and in February when she was recorded at 182/93 and 200/100. Allergies Allergy/AdvReac Type Severity Reaction Status Date / Time No Known Allergies Allergy Verified 03/19/24 08:17 Home Medications Medication Instructions Recorded Confirmed Type amoxicillin 500 mg tablet 2,000 mg (4 x 500 mg) PO ONCE PRN 05/11/22 03/19/24 Rx prophylaxis #4 tabs calcium carbonate 600 mg-vitamin 1 cap PO DAILY 05/15/23 03/19/24 History D3 12.5 mcg (500 unit) capsule (Calcium 600 with Vitamin D3) [id number] ac 400 1 tab PO DAILY 05/15/23 03/19/24 History mcg-calcium carb 500 mg-vit K1 20 mcg tablet (Women's 50 Plus Multivitamin) potassium gluconate 500 mg (83 mg) 500 mg PO DAILY 05/15/23 03/19/24 History tablet tolterodine 4 mg capsule,extended 4 mg PO DAILY 05/15/23 03/19/24 History release 24 hr omeprazole 20 mg tablet,delayed 20 mg PO DAILY 12/20/23 03/19/24 History release budesonide-formoterol HFA 160 2 puff inhalation Q8H PRN dyspnea 03/19/24 03/19/24 History mcg-4.5 mcg/actuation aerosol inhaler ibandronate 150 mg tablet 150 mg PO MONTHLY 03/19/24 03/19/24 History Past Med/Surg History Problem List Hypertensive urgency (Acute) Atypical chest pain (Acute) Elevated troponin (Acute) Pulmonary nodule Reactive airway disease Morbid obesity due to excess calories Dyspnea Idiopathic polyneuropathy Status post left knee replacement (~10/2022) Encounter for pre-operative examination GERD (gastroesophageal reflux disease) controlled, stable per pt Colon cancer screening Urge incontinence Postural (urinary) incontinence Status post right knee replacement Right TKA (11/11/21): SAB at L4-5 (x1 attempt) + PNB at [facility]. No issues noted per post-op anesthesia progress note. developed post-op significant RLE DVT, 6 weeks anticoagulation, follows with [facility]. DVT (deep venous thrombosis) RLE- iliac and lower leg (s/p R TKA 11/2021), given Eliquis for 6 weeks- followed with [facility] and per 07/11/22 note: "Venous reflux study shows no DVT" Medical History Depression Obesity Chronic venous insufficiency follows with [facility] History of hepatitis C treated Osteoporosis Hearing deficit bilateral hearing aids Anxiety Surgical History History of esophagogastroduodenoscopy (EGD) History of benign breast biopsy History of arthroscopy of right knee History of cone biopsy of cervix History of section History of colonoscopy History of wisdom tooth extraction History of bilateral cataract extraction History of strabismus surgery x5 Family History Father Hypertension Kidney stones Lung cancer Deep vein thrombosis pt notes heavy tobacco use, lung CA Mother Bladder cancer Other No family history of adverse response to anesthesia Social History Smoking Status: Never smoker Tobacco Type: Cigarettes Age Started Using Tobacco: 14; Age Quit Using Tobacco: 48; packs per day: 1; Second Hand Exposure: No; Do You Dip or Chew Tobacco: No; Tobacco Cessation Education Requested by Patient: No Hx Substance Use: No Preferred Language: Belarusian Communication Ability: Effective 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 Beliefs That Will Affect Care: None Current Living Situation: Spouse current occupational status: retired Other Information That Helps Us Care for You: No Feels Safe at Home: Yes Safety Concerns: Feels Safe At This Time Assistive Devices: Cane Review of Systems Review of Systems: All systems reviewed & are unremarkable except as noted in HPI & below Physical Exam Physical Exam: PHYSICAL EXAMINATION Last 24h vital signs reviewed, see documentation in flowsheet General: comfortable appearing, no distress HEENT: Normocephalic, atraumatic, pupils round and equal, sclerae anicteric, no conjunctival injection, moist mucus membranes Lungs: Normal respiratory effort. Clear to auscultation bilaterally. No RRW Heart: Regular rate and rhythm, no murmurs. No JVD L bicep with tender area, no deformity or mass, no pain on ROM of shoulder Abdomen: Soft, nontender, nondistended. Bowel sounds present. Extremities: Warm, dry, well-perfused. mild lower extremity edema. Neuro: Alert and oriented x 4, face symmetric, normal speech, eomi, UE strength 5/5, sensation intact to light touch, distal LE strength 5/5 Psych: Normal affect and behavior Results & Data Results & Data Vital Signs (Past 12 Hours) Vital Signs Temp Pulse Pulse Resp BP BP Pulse Ox 03/19/24 07:25 68 16 134/85 97 03/19/24 07:08 74 19 199/105 H 98 03/19/24 06:30 68 18 195/101 H 95 03/19/24 05:10 64 03/19/24 05:01 03/19/24 05:01 96 03/19/24 04:57 36.5 C 71 20 204/74 H 97 O2 Del Method O2 Flow Rate FiO2 03/19/24 07:25 Nasal Cannula 2 03/19/24 07:08 Nasal Cannula 03/19/24 06:30 Room Air 03/19/24 05:10 03/19/24 05:01 Room Air 96 03/19/24 05:01 Room Air 03/19/24 04:57 Room Air Laboratory Results 03/19/24 03/19/24 Range/Units 05:27 05:20 WBC 6.32 (4.8-10.8) K/ul RBC 4.62 (4.20-5.40) M/uL Hgb 13.4 (12.0-16.0) g/dl POC Hgb 13.3 (12.0-16.0) g/dl Hct 39.8 (37.0-47.0) % POC Hct 39 (37-47) % MCV 86.1 (80.0-100.0) fL MCH 29.0 (25.0-34.0) pg MCHC 33.7 (32.0-36.0) g/dL RDW Std Deviation 38.9 (36.4-46.3) fL RDW Coeff of Bri 12.3 (11.5-14.5) % Plt Count 251 (130-400) K/uL MPV 9.3 L (9.4-12.4) fL Immature Gran % (Auto) 0.2 % Neut % (Auto) 43.5 % Lymph % (Auto) 43.2 % [place] % (Auto) 10.6 % Eos % (Auto) 1.7 % Baso % (Auto) 0.8 % Neut # (Auto) 2.75 (1.40-6.50) K/uL Lymph # (Auto) 2.73 (1.20-3.40) K/uL [place] # (Auto) 0.67 H (0.11-0.59) K/uL Eos # (Auto) 0.11 (0.00-0.50) K/uL Baso # (Auto) 0.05 (0.00-0.20) K/uL Immature Gran # (Auto) 0.01 (0.01-0.20) K/uL PT 10.6 (9.0-12.0) Seconds INR 1.0 (0.9-1.1) POC Sodium 138 (135-144) mmol/L Sodium 136 (136-145) mmol/L POC Potassium 4.0 (3.3-5.0) mmol/L Potassium 3.9 (3.5-5.1) mmol/L POC Chloride 105 (101-112) mmol/L Chloride 105 (98-107) mmol/L Carbon Dioxide 23 (21-32) mmol/L POC Total CO2 21 L (24-31) mmol/L Anion Gap 8 (3-11) POC Anion Gap 17.0 (16-25) mmol/L POC BUN 18 (7-18) mg/dl BUN 18 (6-23) mg/dl Creatinine 0.70 (0.6-1.2) mg/dl POC Creatinine 0.9 (0.6-1.3) mg/dl Est Cr Clr Drug Dosing 77.6 ml/min Est GFR ( Amer) 101.7 ml/min Est GFR (Non-Af Amer) 87.8 ml/min BUN/Creatinine Ratio 25.7 H (10-20) Glucose 117 H (70-99(Fasting)) mg/dl POC Glucose (other) 119 H (70-99) mg/dl Calcium 9.6 (8.6-10.3) mg/dl POC Ioniz Calcium Joshua 1.19 (1.12-1.32) mmol/l Magnesium 1.9 (1.7-2.4) mg/dl Total Bilirubin 0.3 (0.2-1.0) mg/dl AST 40 H (13-39) U/L ALT 41 (7-52) U/L Alkaline Phosphatase 55 (34-104) U/L Troponin I High Sens 101.9 H* (0-14) pg/ml Total Protein 6.9 (6.0-8.3) gm/dl Albumin 4.1 (3.4-5.0) gm/dl Globulin 2.8 (2.5-4.0) gm/dl Albumin/Globulin Ratio 1.5 (0.9-2) Lipase 37 (11-82) U/L Diagnostic Findings Chest CTA 03/19/24 05:01 CT ANGIOGRAPHY OF THE CHEST DISSECTION PROTOCOL CLINICAL HISTORY: chest pain, Left arm numbness, HTN COMPARISON STUDY: Chest CT November 30, 2023. TECHNIQUE: Before and following the IV administration of Optiray, helical axial images of the chest were obtained. Maximal intensity projections and sagittal and coronal reformats were viewed on an independent 3D workstation. IV contrast was administered without complication. Automated exposure control was utilized for the study. A dose lowering technique was utilized adhering to the principles of ALARA. CT DOSE: 1580.81 mGy.cm FINDINGS: Caliber of the thoracic aorta is normal. There is no thoracic aortic dissection. No pulmonary emboli are identified. There is no pericardial effusion. There is mild cardiomegaly. No thoracic lymphadenopathy is present. There is no pneumothorax or pleural effusion. There is moderate emphysema. A 7 mm subpleural right lower lobe nodule on image 133 of [address] of November 30, 2023. There is no consolidation to suggest pneumonia. There are no acute fractures within the bony thorax. Hepatic steatosis is incidentally noted. IMPRESSION: 1. No thoracic aortic dissection. 2. No acute intrathoracic findings. 3. Emphysema. 4. No change in an indeterminate 7 mm right lower lobe pulmonary nodule since chest CT of November 30, 2023. A chest CT in 6 months to ensure continued stability is recommended. ACT 112: Negative or not required by law. Electronically signed by: All Everett M.D. 03/19/2024 6:51 AM PG Care Time/CCT Total # of Minutes Spent Total Time Spent with Patient: Total time spent is greater than 50% in coordination of care (as documented) at patient's floor/unit and/or counseling patient: Coding Level of Care Code 83675 INT INP/OBS CARE 2MIN Diagnoses Hypertensive urgency I16.0 Atypical chest pain R07.89 Elevated troponin R79.89 Pulmonary nodule R91.1 Reactive airway disease J45.909
[2024-03-19] MEDS: LISINOPRIL/HCTZ 10/12.5MG TAB PO STA (08:48)
[2024-03-19] MEDS ORDERED: FLUTICASONE/VILANTEROL 200/25MCG 14 PUFFS/INHALER INH PRN (09:16)
[2024-03-19] MEDS: PANTOprazole 40 MG TAB PO STA (09:42)
[2024-03-19] MEDS ORDERED: POLYETHYLENE (MIRALAX) 17 GM PACK PO PRN (10:58)
[2024-03-19] MEDS ORDERED: ONDANSETRON INJ 2 MG/ML 2 ML VIAL IV PRN (10:58)
[2024-03-19] MEDS ORDERED: ACETAMINOPHEN 325 MG TAB PO PRN (10:58)
[2024-03-19] MEDS ORDERED: MAGNESIUM HYDROXIDE SUSP 30 ML UDC PO PRN (10:58)
--- NOTE | 2024-03-19 15:41 | Electrocardiogram Report ---
Test Reason : Blood Pressure : */* mmHG Vent. Rate : 63 BPM Atrial Rate : 63 BPM P-R Int : 156 ms QRS Dur : 74 ms QT Int : 398 ms P-R-T Axes : 43 33 11 degrees QTcB Int : 407 ms Normal sinus rhythm Normal ECG No previous ECGs available Confirmed by Harsh Dailey [id number]) on 03/19/2024 3:40:54 PM Referred By: REFERRED SELF Confirmed By: Harsh Dailey
[2024-03-19] MEDS: PANTOprazole 40 MG TAB PO SCH (20:39)
[2024-03-19] MEDS: MELATONIN 3 MG TAB PO PRN (21:33)
[2024-03-19] MEDS: ALUMINUM/MAGNESIUM SUSP 30 ML UDC PO PRN (23:15)
[2024-03-20] MEDS: NITROGLYCERIN SL 0.4 MG/TAB TAB ONE (01:36)
[2024-03-20 07:21] LABS: BUN Creatinine Ratio 19.2 (10-20); Creatinine Clr Calc Pharmacy 54.2 ml/min; Est GFR (African American) 66.9 ml/min; Est GFR (Non-African American) 57.7 ml/min; Potassium 4.1 mmol/L (3.5-5.1)
[2024-03-20 07:28] LABS: Troponin I High Sensitivity 143.4 pg/ml (0-14)
[2024-03-20] MEDS: LISINOPRIL/HCTZ 10/12.5MG TAB PO SCH (08:02)
[2024-03-20] MEDS ORDERED: LISINOPRIL/HCTZ 10/12.5MG TAB PO SCH (09:00)
[2024-03-20] MEDS ORDERED: PANTOprazole 40 MG TAB PO SCH (09:00)
[2024-03-20] MEDS: PERFLUTREN LIPID MICROSPHERE (DEFINITY) IV ONE (11:46)
--- NOTE | 2024-03-20 12:20 | XCELERA ---
[id number]
--- NOTE | 2024-03-20 12:46 | Cardiology Consultation ---
Date of Consultation March 20, 2024 Assessment & Plan (1) Hypertensive urgency: Blood pressure is near target at the moment. Certainly, elevated blood pressure can cause chest discomfort and even small elevations in troponin. She is at risk for hypertension because of age, obesity, and probable sleep apnea. Her home medicines do not have any antihypertensives but clearly she will need some at discharge. Continue HCTZ plus lisinopril at current dose. I have additional recommendations below. (2) Atypical chest pain: Patient is chest tightness occurs at rest only. It is also tightly associated with palpitations and tachycardia. I suspect she has underlying arrhythmia triggering the symptoms. She is at risk given diastolic dysfunction, LVH, hypertension, and likely obstructive sleep apnea. She should remain on the monitor while she is hospitalized and if she has a recurrent episode we will be able to correlate with her rhythm at that time. If she does not have a recurrent episode we will arrange for her to have cardiac monitoring as an outpatient. She does have mildly elevated troponin which is not in a pattern consistent with ACS. Previous stress test was -1-year ago. We cannot exclude small pulmonary embolism at this time. Her CT scan was targeted for aortopathy not pulmonary embolism. In any case it would likely be small given the relative stability of her hemodynamics and absence of ongoing symptoms at this time. Her repeat echocardiogram does not demonstrate evidence of wall motion abnormality, reduction in EF, but does potentially show enlargement of the RV which would be considered new. I will order a D-dimer to exclude pulmonary embolism. If this is excluded then I think we need to definitively evaluate her coronaries by cardiac catheterization tomorrow. If it is not excluded we will need to perform further imaging to exclude PE but we may still proceed with coronary angiography prior to discharge. (3) Dyspnea: Obesity, deconditioning, mild underlying lung disease can all contribute. Could also be exacerbated by arrhythmia (my suspicion would be for atrial fibrillation or atrial flutter) or potentially hypertension. Ischemia seems lower risk but has not been recently investigated. (4) DVT (deep venous thrombosis): Patient with prior DVT. Was on anticoagulation but has not been on it in a long time. Therefore we cannot say she is protected from recurrent DVT and certainly we have not investigated adequately to exclude VTE. Will begin with a D-dimer which is simple and does not require additional IVP contrast. If D-dimer is normal then we no longer need to worry about this other than for prophylaxis. If it is abnormal we will need to consider additional imaging. Overall she looks fairly stable. The echo findings of possible RV enlargement are a bit c oncerning but her echo imaging has historically been limited because of her body habitus and it certainly possible that the RV dilatation is not new. Plan Tentatively scheduled for cardiac catheterization tomorrow. If the coronaries are normal I will also perform a right heart cath to evaluate pulmonary pressures. History of Present Illness Reason for Consultation: Chest pain, elevated troponin Attending Physician: Kelly Mott MD History of Present Illness 68-year-old female without prior cardiac problems presented because of numbness in her left arm. Patient tells me that she has been experiencing chest tightness, palpitations, pounding in her chest, with mild associated dyspnea occurring when she lies in bed at night. Just prior to her presentation she had been having a lot of these episodes but became worried when she noted left arm numbness/tingling. She denies any chest squeezing/tightness occurring when she exerts herself although she does have dyspnea on exertion which she states is different than the dyspnea she noted at rest. She denies sharp chest pain. She has recently followed with pulmonary medicine because of mild COPD. This was initially diagnosed in the [place] previously lived. PFTs were completed demonstrating only mildly reduced diffusion capacity but no diagnostic parameters suggestive of COPD, restrictive lung disease, etc. Patient was also evaluated in the cardiology office. She had an echocardiogram done last month which was essentially normal except for mild LVH, grade 1 diastolic dysfunction and mild mitral annular calcification. There is no valvular heart disease. Patient also complains of recent neuropathy. This occurred after she underwent knee replacement and has bothered her since that time. She had a DVT with her first knee replacement and at that time was placed on anticoagulation but this was then discontinued. She had a second knee surgery and was never placed on a blood thinner. She says she did fine with the surgeries but has noticed the neuropathy. She also underwent venous ablation secondary to chronic venous insufficiency and noted significant improvement in her edema. However she did have burning and discomfort in the legs. She denies any syncope, near syncope, orthopnea, PND, and has noted improvement in her edema. She has had palpitations and racing heartbeat at night often associated with chest tightness. Denies fevers or chills. No other complaints or concerns at this time. She has not had any recurrence of her discomfort since she has been hospitalized. Pertinent comorbid medical disease includes obesity, and a remote history of tobacco use. Pertinent family history includes father from lung cancer at age 60 but no cardiac disease. Mother is also from bladder cancer in 2005 and she had COPD from tobacco use. Patient had exposure to secondhand smoke as a child and smoked up until 2003. She drinks alcohol socially and often has wine with dinner. Patient snores significantly while asleep. Does not use CPAP and I do not see that she has had a sleep apnea workup. Allergies Allergy/AdvReac Type Severity Reaction Status Date / Time No Known Allergies Allergy Verified 03/19/24 08:17 Home Medications Medication Instructions Recorded Confirmed Type amoxicillin 500 mg tablet 2,000 mg (4 x 500 mg) PO ONCE PRN 05/11/22 03/19/24 Rx prophylaxis #4 tabs calcium carbonate 600 mg-vitamin 1 cap PO DAILY 05/15/23 03/19/24 History D3 12.5 mcg (500 unit) capsule (Calcium 600 with Vitamin D3) bavavewd-aly-aztfq ac 400 1 tab PO DAILY 05/15/23 03/19/24 History mcg-calcium carb 500 mg-vit K1 20 mcg tablet (Women's 50 Plus Multivitamin) potassium gluconate 500 mg (83 mg) 500 mg PO DAILY 05/15/23 03/19/24 History tablet tolterodine 4 mg capsule,extended 4 mg PO DAILY 05/15/23 03/19/24 History release 24 hr omeprazole 20 mg tablet,delayed 20 mg PO DAILY 12/20/23 03/19/24 History release budesonide-formoterol HFA 160 2 puff inhalation Q8H PRN dyspnea 03/19/24 03/19/24 History mcg-4.5 mcg/actuation aerosol inhaler ibandronate 150 mg tablet 150 mg PO MONTHLY 03/19/24 03/19/24 History Patient History Medical History Depression Obesity Chronic venous insufficiency follows with [facility] History of hepatitis C treated Osteoporosis Hearing deficit bilateral hearing aids Anxiety Surgical History History of esophagogastroduodenoscopy (EGD) History of benign breast biopsy History of arthroscopy of right knee History of cone biopsy of cervix History of section History of colonoscopy History of wisdom tooth extraction History of bilateral cataract extraction History of strabismus surgery x5 Family History Father Hypertension Kidney stones Lung cancer Deep vein thrombosis pt notes heavy tobacco use, lung CA Mother Bladder cancer Other No family history of adverse response to anesthesia Social History Smoking Status: Never smoker Tobacco Type: Cigarettes Age Started Using Tobacco: 14; Age Quit Using Tobacco: 48; packs per day: 1; Second Hand Exposure: No; Do You Dip or Chew Tobacco: No; Tobacco Cessation Education Requested by Patient: No Hx Substance Use: No Preferred Language: Italian Communication Ability: Effective Desk Top Publisher Required: No Beliefs That Will Affect Care: None Current Living Situation: Spouse current occupational status: retired Other Information That Helps Us Care for You: No Feels Safe at Home: Yes Safety Concerns: Feels Safe At This Time Assistive Devices: Cane, Raised Toilet Seat and Walker Review of Systems Review of Systems: Negative except as per HPI Physical Exam Constitutional: WD/WN, vitals as above (Obese. No acute distress.) Eyes: Extraocular muscles intact. Sclera are anicteric. ENMT: Oral mucosa is pink moist and intact Neck: No JVD appreciated Respiratory: Clear to auscultation bilaterally. No wheezing, rhonchi, or rales. Cardiovascular: Regular rate and rhythm. S4 gallop. Do not appreciate any rubs or murmurs. Tr prasanna bilateral lower extremity edema. Musculoskeletal: no cyanosis or clubbing, extremities motor strength 5/5 Neurologic: Cognition is intact. Speech is fluent. No focal deficits. Psychiatric: A+Ox3, euthymic affect Results & Data Vital Signs (Past 12 Hours) Vital Signs Temp Pulse Pulse Resp BP Pulse Ox O2 Del Method 03/20/24 08:10 36.9 C 54 L 16 114/76 97 Room Air 03/20/24 08:00 Room Air 03/20/24 07:02 60 03/20/24 03:27 36.5 C 58 L 16 144/84 H 96 Room Air 03/20/24 01:00 78 PG Care Time/CCT Total # of Minutes Spent Total Time Spent with Patient: Total time spent is greater than 50% in coordination of care (as documented) at patient's floor/unit and/or counseling patient: Coding Level of Care Code 28445 INT INP/OBS CARE 2/55MIN Diagnoses Hypertensive urgency I16.0 Atypical chest pain R07.89 Shortness of breath R06.02 Dyspnea type: shortness of breath DVT (deep venous thrombosis) I82.409 Time Spent (min) 55 (3) Dyspnea Dyspnea type: shortness of breath Qualified Code(s): R06.02 - Shortness of breath
[2024-03-20] MEDS ORDERED: Heparin IV Adult Wt-Based Low-Dose *NO* INITIAL Bolus Protocol IV STA (13:20)
[2024-03-20 13:51] LABS: D Dimer 350 ug/L FEU (0-500)
--- NOTE | 2024-03-20 14:21 | Electrocardiogram Report ---
Test Reason : Blood Pressure : */* mmHG Vent. Rate : 68 BPM Atrial Rate : 68 BPM P-R Int : 166 ms QRS Dur : 84 ms QT Int : 420 ms P-R-T Axes : 38 45 1 degrees QTcB Int : 446 ms Normal sinus rhythm Normal ECG When compared with ECG of 19-Mar-2024 05:06, No significant change was found Confirmed by Harsh Dailey ([id number]) on 03/20/2024 2:21:21 PM Referred By: REFERRED SELF Confirmed By: Harsh Dailey
[2024-03-20] MEDS: HEPARIN SODIUM/DEXTROSE 25,000 UNITS/500 ML BAG IV SCH (14:25)
[2024-03-20] MEDS: ASPIRIN 81 MG ECTAB PO SCH (14:39)
--- NOTE | 2024-03-20 14:52 | Electrocardiogram Report ---
Test Reason : Blood Pressure : */* mmHG Vent. Rate : 55 BPM Atrial Rate : 55 BPM P-R Int : 176 ms QRS Dur : 80 ms QT Int : 464 ms P-R-T Axes : 42 47 19 degrees QTcB Int : 443 ms Sinus bradycardia Otherwise normal ECG When compared with ECG of 19-Mar-2024 23:07, (unconfirmed) No significant change was found Confirmed by Harsh Daiely ([id number]) on 03/20/2024 2:52:53 PM Referred By: REFERRED SELF Confirmed By: Harsh Dailey
[2024-03-20 15:09] LABS: Basophils # (auto) 0.03 K/uL (0.00-0.20); Basophils % (auto) 0.5 %; Eosinophils # (auto) 0.12 K/uL (0.00-0.50); Eosinophils % (auto) 1.9 %; Hematocrit (blood only) 41.5 % (37.0-47.0); Hemoglobin 13.9 g/dl (12.0-16.0); Immature Granulocytes # (auto) 0.01 K/uL (0.01-0.20); Immature Granulocytes % (auto) 0.2 %; Lymphocytes % (auto) 40.4 %; Mean Corpuscular Hemoglobin 29.3 pg (25.0-34.0); Mean Corpuscular Hgb Conc 33.5 g/dL (32.0-36.0); Mean Corpuscular Volume 87.6 fL (80.0-100.0); Monocytes # (auto) 0.54 K/uL (0.11-0.59); Monocytes % (auto) 8.4 %; Neutrophils # (auto) 3.14 K/uL (1.40-6.50); Neutrophils % (auto) 48.6 %; Platelet Count 262 K/uL (130-400); RDW Coefficient of Variation 12.5 % (11.5-14.5); RDW Standard Deviation 39.8 fL (36.4-46.3); Red Blood Count 4.74 M/uL (4.20-5.40); White Blood Count 6.44 K/ul (4.8-10.8)
[2024-03-20 15:35] LABS: Partial Thromboplastin Ratio 0.9; Partial Thromboplastin Time 25 Seconds (21-31); Prothrombin Time 10.7 Seconds (9.0-12.0)
[2024-03-20] MEDS: OXYBUTYNIN CHLORIDE XL 5 MG TABCR PO SCH (16:19)
--- NOTE | 2024-03-20 17:13 | Hospitalist Progress Note ---
Date of Service March 20, 2024 Assessment & Plan (1) Hypertensive urgency: (2) Atypical chest pain: (3) Elevated troponin: (4) Pulmonary nodule: (5) Reactive airway disease: Plan 68 y/o woman presented with hypertensive emergency symptomatic of chest pressure radiating to left arm, mildly elevated troponin. Suspect she has developed hypertension based on recent BP records, acutely worsened by anxiety. Resolved after one SL nitroglycerin and remained normotensive after one dose of lisinopril/HCTZ Hypertensive emergency Atypical chest pain - seemed to have been triggered by severe hypertension, however she had recurrent episode overnight with exact same symptoms of upper chest pressure and left-sided arm dysesthesia and heaviness also relieved by sublingual nitroglycerin. this occurred while normotensive. Troponin has been mildly elevated but uptrending from 100 -->140. EKGs have remained normal CTA chest negative for PE or dissection or other explanation for chest heaviness TTE 02/28/24 - normal LV, mild conc LVH, mild diastolic dysfunction, no significant valvular disease, normal RA pressure, normal collapsibility of IVC Stress echo 06/20/2023 - negative, normal exercise capacity recurrent stereotypical chest pressure episode despite normotension is concerning I wonder if her dyspnea on exertion could be an anginal equivalent. consulted cardiology. I discussed with Dr. Franco - considering coronary angiogram tomorrow. Started aspirin and heparin drip. Updated TTE today normal LV systolic function EF 60-65% mild LVH grade 1 diastolic dysfunction no segmental RWMA's mildly enlarged RV normal RV systolic function heart failure seems unlikely, BNP was very low and she has had normal volume status based on 2 recent TTE's She tends to have upper chest tightness and palpitations frequently, these occur when lying down at night -consider GERD - increase PPI to bid and advised to try elevating the head of her bed at home For hypertension started low dose lisinopril/HCTZ to which she has had good response. Counseled to obtain a home cuff and monitor daily. Other issues: Restrictive lung disease, possible reactive airways disease - continue control inhaler. Not in exacerbation. did not have resolution of her dyspnea on exertion with trial of inhaler Mild CM and moderate emphysema on CTA. PFTs 02/10/24 normal without significant BD response. Justin last visit 01/29/24 Morbid obesity BMI 38, restrictive lung disease, MARIE - GLP1 agonist would be helpful for her remote smoking history Major depression, LOUISE DVT history Venous insufficiency, edema Emphysema Idiopathic polyneuropathy - trial gabapentin, start low dose. Follows with Dr. Beebe and has had workup and EMG for this. Onset after bilateral TKRs Pulmonary nodule - "No change in an indeterminate 7 mm right lower lobe pulmonary nodule since chest CT of November 30, 2023. A chest CT in 6 months to ensure continued stability is recommended". -there is already an order for outpatient chest CT in [address] Anderson DVT prophylaxis - currently on heparin drip as above Admission and Anticipated Discharge Date Admission Date: March 19, 2024 Subjective Lori felt well when I saw her this morning but she did have an episode overnight around 11 PM to midnight where she awoke with upper chest pressure radiating to left arm and left arm numbness and tingling as well as palpitations which was identical to her previous symptoms this resolved with sublingual nitroglycerin. EKG at that time remain normal. Reviewed telemetry with monitor techs and there were no sig arrhythmias -l sinus rhythm with PACs Physical Exam 2 Physical Exam: PHYSICAL EXAMINATION Last 24h vital signs reviewed, see documentation in flowsheet General: comfortable appearing, no distress HEENT: Normocephalic, atraumatic, pupils round and equal, sclerae anicteric, no conjunctival injection, moist mucus membranes Lungs: Normal respiratory effort. Clear to auscultation bilaterally. No RRW Heart: Regular rate and rhythm, no murmurs. No JVD Abdomen: Soft, nontender, nondistended. Bowel sounds present. Extremities: Warm, dry, well-perfused. No extremity edema. Neuro: Alert and oriented x 4, face symmetric, moves 4 extremities well Psych: Normal affect and behavior Results & Data Results & Data Vital Signs (Past 12 Hours) Vital Signs Temp Pulse Pulse Resp BP Pulse Ox O2 Del Method 03/20/24 16:02 36.9 C 62 18 114/77 96 Room Air 03/20/24 14:35 62 03/20/24 08:10 36.9 C 54 L 16 114/76 97 Room Air 03/20/24 08:00 Room Air 03/20/24 07:02 60 Laboratory Results 03/20/24 14:28 03/20/24 05:32 troponin 140 PG Care Time/CCT Total # of Minutes Spent Total Time Spent with Patient: Total time spent is greater than 50% in coordination of care (as documented) at patient's floor/unit and/or counseling patient: Coding Level of Care Code 25027 SUB INP/OBS CARE 3/50MIN Diagnoses Hypertensive urgency I16.0 Atypical chest pain R07.89 Elevated troponin R79.89 Pulmonary nodule R91.1 Reactive airway disease J45.909
[2024-03-20 22:10] LABS: ANTI-Xa, UFH(UnfractionatedHep 0.22 IU/ml (0.3-0.7)
[2024-03-21 04:18] LABS: ANTI-Xa, UFH(UnfractionatedHep 0.26 IU/ml (0.3-0.7)
--- NOTE | 2024-03-21 10:45 | Pre Anesthesia Assessment ---
Date of Service March 21, 2024 Pre Sedation Assessment Vital Signs Temp Pulse Pulse Pulse Resp BP BP 03/21/24 10:05 58 L 16 171/98 H 03/21/24 09:34 36.6 C 53 L 18 125/77 03/21/24 08:03 37 C 60 18 163/91 H 03/21/24 07:58 03/21/24 07:00 63 03/21/24 03:59 36.7 C 63 18 137/79 03/20/24 22:57 36.6 C 62 18 112/74 03/20/24 21:57 66 03/20/24 19:31 36.7 C 73 18 147/88 H 03/20/24 19:30 03/20/24 16:02 36.9 C 62 18 114/77 03/20/24 14:35 62 Pulse Ox O2 Del Method 03/21/24 10:05 98 Room Air 03/21/24 09:34 96 Room Air 03/21/24 08:03 95 Room Air 03/21/24 07:58 Room Air 03/21/24 07:00 03/21/24 03:59 96 Room Air 03/20/24 22:57 94 Room Air 03/20/24 21:57 03/20/24 19:31 97 Room Air 03/20/24 19:30 Room Air 03/20/24 16:02 96 Room Air 03/20/24 14:35 Cardiovascular RRR, no murmur, no edema Respiratory normal respiratory effort, lungs clear to auscultation Pre-Sedation Airway Assessment Smoking Status: Never smoker Hx Sleep Apnea: No Short, Thick Neck: No Thyromental Distance: > or= 3.5 Finger Breadths Oral Cavity: + WNL Mallampati Class: III ASA: ASA3 NPO Status Date of Last Intake of Fluids: 03/21/24 Time of Last Intake of Fluids: 07:00 Last Oral Intake of Fluids Comment: sips Date of Last Intake of Solid Food: 03/20/24 Time of Last Intake of Solid Foods: 20:00 Notes The planned sedation has been discussed with the patient. Informed Consent was obtained. I have identified the patient, determined the appropriateness of sedation and have assessed the patient immediately prior to the procedure. All medicine(s) and interventions are by my order.
[2024-03-21] MEDS: OPTIRAY 350 ONE (11:21)
[2024-03-21] MEDS: MIDAZOLAM HCL 1 MG/ML 2ML VIAL ONE (11:22)
[2024-03-21] MEDS: NITROGLYCERIN/D5W 100MCG/ML 20ML SYR ONE (11:22)
[2024-03-21] MEDS: niCARdipine HCL INJ 2.5 MG/ML 10 ML AMP ONE (11:22)
[2024-03-21] MEDS: fentaNYL citrate PF 100 MCG/2 ML VIAL ONE (11:22)
[2024-03-21] MEDS: HEPARIN (PORCINE) 1000 UNIT/ML 10 ML (CATH LAB USE ONLY) ONE (11:22)
[2024-03-21] MEDS ORDERED: ACETAMINOPHEN 325 MG TAB PO PRN (11:29)
[2024-03-21] MEDS ORDERED: SODIUM CHLORIDE 0.9% 500 ML IV PRN (11:29)
[2024-03-21] MEDS ORDERED: ONDANSETRON INJ 2 MG/ML 2 ML VIAL IV PRN (11:29)
[2024-03-21] MEDS ORDERED: NITROGLYCERIN SL 0.4 MG/TAB TAB SL PRN (11:29)
--- NOTE | 2024-03-21 11:39 | Post Anesthesia Assessment ---
Date of Service March 21, 2024 Post Sedation Assessment Vital Signs Temp Pulse Pulse Pulse Resp BP BP 03/21/24 10:05 58 L 16 171/98 H 03/21/24 09:34 36.6 C 53 L 18 125/77 03/21/24 08:03 37 C 60 18 163/91 H 03/21/24 07:58 03/21/24 07:00 63 03/21/24 03:59 36.7 C 63 18 137/79 03/20/24 22:57 36.6 C 62 18 112/74 03/20/24 21:57 66 03/20/24 19:31 36.7 C 73 18 147/88 H 03/20/24 19:30 03/20/24 16:02 36.9 C 62 18 114/77 03/20/24 14:35 62 Pulse Ox O2 Del Method 03/21/24 10:05 98 Room Air 03/21/24 09:34 96 Room Air 03/21/24 08:03 95 Room Air 03/21/24 07:58 Room Air 03/21/24 07:00 03/21/24 03:59 96 Room Air 03/20/24 22:57 94 Room Air 03/20/24 21:57 03/20/24 19:31 97 Room Air 03/20/24 19:30 Room Air 03/20/24 16:02 96 Room Air 03/20/24 14:35 Recovery Score Activity: Moves 4 extremities Respiration: Deep Breath/Cough Circulation: +/-20% PreAnes Value Consciousness: Fully Awake Oxygen Saturation: > 92% On Room Air Discharge Sedation Level of Care: Fast Track Phase II Post Sedation Plan On clinical assessment, the patient appears to have tolerated the sedation without complications. Patient is recovering as anticipated. Patient will continue to be monitored by nursing and may be discharged when sedation discharge criteria are met per below protocol. Upon Completions of procedure up to 15 minutes continue every 5 minute vital signs and the P.A.R. score; then discharge to a Phase I or Fast Track to Phase II per the following guidelines: * Discharge Patient to appropriate Phase II area if PAR is 8 or greater or return to pre- procedure baseline. The post - procedure orders will be as directed. * If PAR score is less than 8 or not return to pre-procedure baseline then patient will follow Phase I monitoring till PAR is reached for Phase II. The Phase I may be done in procedure room or may call to secure a Phase I area. * If naloxone or flumazenil are used for reversal, hold in Phase I for continued monitoring from when last reversal dose was given for a minimum of 60 minutes or longer pending the nurse and/or physician discretion of patient condition before discharge to Phase II. Please call the Sedation Physician to re-evaluate and complete post-note for discharge to Phase II area. Do NOT discharge from procedure sedation or Phase 1 until post- sedation evaluation note is complete by procedure /sedation MD Sedation Discharge Instructions to be given to the patient at discharge to home. [facility] [place]arges) Indication for Procedure Indication for procedure: NSTEMI Sedation/Anesthesia Procedure 1: Sedation/Anesthesia: 34386 Mod Sedation by the same physician;Init15 Min Child Age 5 & Up (Initial 15 minutes, start time 1059) Total Sedation Time (minutes): 25 Procedure 2: Sedation/Anesthesia: 34153 Mod Sedation by the same physician; Ea [id number] Minutes (Additional 10 minutes, end time 1124)
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
[2024-03-21 13:24] LABS: ANTI-Xa, UFH(UnfractionatedHep < 0.10 IU/ml (0.3-0.7)
[2024-03-21] MEDS: METOPROLOL SUCC 25MG EXT REL TAB PO SCH (15:13)
[2024-03-21] MEDS: ATORVASTATIN 40 MG TAB PO SCH (15:13)
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
--- NOTE | 2024-03-21 17:01 | Cardiology Progress Note ---
Date of Service March 21, 2024 Assessment & Plan (1) CAD (coronary artery disease): Plan: Severe chronic occlusive disease of the RCA with moderate left main disease. Suspect elevated troponin was secondary to hypertensive urgency. No acute lesions and collateralization to the RCA territory. She probably only has demand ischemia at high pressures or when she has hypoxia. This would explain the rather flat troponin trajectory. In any case, guidelines suggest medical management for chronic total occlusion reserving higher risk "TRACK CAR OPERATOR PCI) for patients refractory to medical management with class III or class IV angina. I would have liked to also do Doppler wave wire analysis of the left main to assure that this was not hemodynamically significant. Angiographically it does not appear to be so but confirmation by Doppler wave wire analysis would be more reassuring. If she has refractory class III or class IV angina I would first bring her back to the Station [facility] so we could Doppler wire evaluate the left main. If it were hemodynamically significant then she would be recommended for coronary artery bypass grafting. For now, she will continue with optimize medical therapy for secondary prevention of coronary disease. This includes low-dose aspirin, high intensity statin therapy, beta-katie, plus or minus NICKY inhibitor/ARB as tolerated by blood pressure and renal function. We have also added isosorbide mononitrate at a low dose to see if we can reduce her anginal symptoms. Achieving target blood pressure is critical in reducing her angina. (2) Hypertensive urgency: Plan: Blood pressure has been elevated above target today. Post catheterization her blood pressure has been better although not yet at target. She will continue on her current medical regimen and reassess blood pressure tomorrow. If it remains above target we can titrate up the isosorbide. I will be adding hydralazine IV to be used as needed overnight. (3) Atherogenic dyslipidemia: Plan: Patient is high risk. High intensity statin therapy is recommended. Target LDL reduction under that strategy is greater than or equal to 50% of untreated baseline LDL. Her fasting LDL was in the 150s. Therefore, when we reassess her lipids in 3 months we will be targeting an LDL of 75 to 80 mg/dL. Plan Patient will be following up with me in the cardiology office. Recommend that this occur within 1 to 3 weeks. Will initiate cardiac rehab as an outpatient. Admission and Anticipated Discharge Date Admission Date: March 21, 2024 Subjective Saw the patient before and after her catheterization today. She was not having any symptoms at that time. Cardiac catheterization demonstrated chronic total occlusion of the RCA and moderate distal left main coronary artery disease. Mild disease elsewhere. Note that her lipid panel demonstrated significantly elevated LDL cholesterol. I discussed the findings on the catheterization with the patient and recommended medical management at this time. Review of Systems Review of Systems: Negative except as per HPI Physical Exam Constitutional: WD/WN, vitals as above (Obese. No acute distress.) Eyes: Extraocular muscles intact. Sclera are anicteric. ENMT: Oral mucosa is pink moist and intact Neck: No JVD appreciated Respiratory: Clear to auscultation bilaterally. No wheezing, rhonchi, or rales. Cardiovascular: Regular rate and rhythm. S4 gallop. Do not appreciate any rubs or murmurs. Trace bilateral lower extremity edema. Musculoskeletal: no cyanosis or clubbing, extremities motor strength 5/5 Neurologic: Cognition is intact. Speech is fluent. No focal deficits. Psychiatric: A+Ox3, euthymic affect Results & Data Vital Signs (Past 12 Hours) Vital Signs Temp Pulse Pulse Pulse Resp BP BP 03/21/24 15:57 36.8 C 62 18 140/82 03/21/24 13:44 36.8 C 69 18 126/65 03/21/24 13:35 100 H 20 144/88 H 03/21/24 12:44 66 14 126/65 03/21/24 12:14 55 L 14 167/81 H 03/21/24 12:00 60 16 173/88 H 03/21/24 11:30 60 16 174/95 H 03/21/24 10:05 58 L 16 171/98 H 03/21/24 09:34 36.6 C 53 L 18 125/77 03/21/24 08:03 37 C 60 18 163/91 H 03/21/24 07:58 03/21/24 07:00 63 Pulse Ox O2 Del Method O2 Flow Rate 03/21/24 15:57 95 Room Air 03/21/24 13:44 97 Room Air 03/21/24 13:35 96 Room Air 03/21/24 12:44 96 Room Air 03/21/24 12:14 95 Room Air 03/21/24 12:00 93 Room Air 03/21/24 11:30 94 Nasal Cannula 2 03/21/24 10:05 98 Room Air 03/21/24 09:34 96 Room Air 03/21/24 08:03 95 Room Air 03/21/24 07:58 Room Air 03/21/24 07:00 PG Care Time/CCT Total # of Minutes Spent Total Time Spent with Patient: Total time spent is greater than 50% in coordination of care (as documented) at patient's floor/unit and/or counseling patient: Coding Level of Care Code 13948 SUB INP/OBS CARE 2/35MIN Diagnoses CAD (coronary artery disease) I25.10 Hypertensive urgency I16.0 Atherogenic dyslipidemia E78.5
[2024-03-21] MEDS: ENOXAPARIN INJ 40 MG/0.4 ML SYR SQ SCH (20:27)
[2024-03-22] MEDS: lisinopril 2.5 MG TAB PO SCH (08:17)
[2024-03-22] MEDS: ISOSORBIDE MONO EXTENDED REL 30 MG TABCR PO SCH (08:17)
[2024-03-22 08:34] VITALS: RESP 18; TEMP 97.9; O2SAT 97
[2024-03-22 11:07] VITALS: BP 171/98; PULSE 60
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
== END 2024-03-22 12:27 | disposition home or self-care (01) | DRG 281 ==
LOC: ED 04:53 → EDINP 04:53 → 2N 10:58 → 2E 03-21 12:02